=== PATIENT | female | born 1980 | race Caucasian/White ===

== ENCOUNTER 2019-05-18 09:44 | Emergency (ER) | payer MEDICAID ==
[~2019-05-18] VITALS: Ht 157.5 cm; Wt 131.0 kg
[2019-05-18 09:48] VITALS: BP 122/80
[2019-05-18] MEDS ORDERED: amoxicillin 250mg capsule PO ONE (10:30)
[2019-05-18] MEDS ORDERED: BUPIVAcaine/PF 7.5mg/ml (0.75%) 10ml vial IJ ONE (10:30)
[2019-05-18] MEDS ORDERED: HYDR-3965 PO (11:14)
[2019-05-18] MEDS ORDERED: AMOX500C2 PO (11:14)
== END 2019-05-18 11:26 | disposition home or self-care (01) ==
LOC: ER 09:45
DX: K08.89 Other specified disorders of teeth and supporting structures (principal); E11.9 Type 2 diabetes mellitus without complications; Z90.49 Acquired absence of other specified parts of digestive tract; Z88.2 Allergy status to sulfonamides
CPT/HCPCS: 64400; 99284; J3490

== ENCOUNTER 2021-10-03 19:29 | Emergency (ER) | payer MEDICAID ==
[~2021-10-03] VITALS: Ht 157.5 cm; Wt 119.4 kg
[2021-10-03] MEDS ORDERED: DOXYCYCLINE 100MG CAPSULE PO STA (20:47)
[2021-10-03] MEDS ORDERED: HYDROcodone/acetaminophen 10/325mg tab PO ONE (20:50)
[2021-10-03] MEDS ORDERED: DOXY100C76 PO (20:52)
[2021-10-03] MEDS ORDERED: HYDR-3972 PO (20:52)
[2021-10-03 21:23] VITALS: BP 123/89
== END 2021-10-03 21:26 | disposition home or self-care (01) ==
LOC: ER 19:30
DX: L03.011 Cellulitis of right finger (principal); E11.9 Type 2 diabetes mellitus without complications; Z90.49 Acquired absence of other specified parts of digestive tract; Z88.2 Allergy status to sulfonamides; Z79.899 Other long term (current) drug therapy
CPT/HCPCS: 10060; 10160; 99283; 99284

== ENCOUNTER 2021-12-13 12:21 | Emergency (ER) | payer MEDICAID ==
[~2021-12-13] VITALS: Ht 157.5 cm; Wt 119.2 kg
[2021-12-13 12:36] VITALS: BP 148/85
[2021-12-13] MEDS ORDERED: cephalexin 500mg capsule PO ONE (14:55)
[2021-12-13] MEDS ORDERED: HYDROcodone/acetaminophen 5mg/325mg tablet PO ONE (15:50)
[2021-12-13] MEDS ORDERED: CEPH500C81 PO (15:53)
== END 2021-12-13 16:11 | disposition home or self-care (01) ==
LOC: ER 12:21
DX: L02.811 Cutaneous abscess of head [any part, except face] (principal); L02.212 Cutaneous abscess of back [any part, except buttock and flank]; H92.02 Otalgia, left ear; E11.9 Type 2 diabetes mellitus without complications; Z79.2 Long term (current) use of antibiotics; Z90.49 Acquired absence of other specified parts of digestive tract
CPT/HCPCS: 10060; 99283

== ENCOUNTER 2021-12-15 18:30 | Emergency (ER) | payer MEDICAID ==
[~2021-12-15] VITALS: Ht 157.5 cm; Wt 120.5 kg
[~2021-12-15 18:30] MED LIST: CEPH500C81 PO
[2021-12-15 18:37] VITALS: BP 123/85
[2021-12-15] MEDS ORDERED: HYDROcodone/acetaminophen 10/325mg tab PO ONE (19:25)
[2021-12-15] MEDS ORDERED: LIDOcaine 1% W/epiNEPHrine 1:100,000 20ml vial IJ ONE (19:25)
--- NOTE | 2021-12-15 19:43 | NUR ---
PO MED GIVEN LIDOCAIN PLACED ON BEDSIDE TABLE
[2021-12-15] MEDS ORDERED: DOXYCYCLINE 100MG CAPSULE PO STA (20:08)
[2021-12-15] MEDS ORDERED: DOXY-1 PO (20:10)
[2021-12-15] MEDS ORDERED: ketorolac trometh inj. 60 MG/2 ML VIAL IM ONE (20:10)
== END 2021-12-15 20:49 | disposition home or self-care (01) ==
LOC: ER 18:31
DX: L02.811 Cutaneous abscess of head [any part, except face] (principal); E11.9 Type 2 diabetes mellitus without complications; Z90.49 Acquired absence of other specified parts of digestive tract; Z88.2 Allergy status to sulfonamides; Z79.899 Other long term (current) drug therapy
CPT/HCPCS: 10061; 96372; 99284; J1885; J3490; A6258; A6449

== ENCOUNTER 2024-08-14 19:12 | Inpatient (IN) | payer MEDICAID ==
[~2024-08-14] VITALS: Ht 157.5 cm; Wt 119.2 kg
[2024-08-14 20:01] LABS: BASOPHILS # (AUTO) 0.1 X10'3 (0-0.2); BASOPHILS % (AUTO) 1.4 % (0-1); EOSINOPHILS # (AUTO) 0.7 X10'3 (0-0.9); EOSINOPHILS % (AUTO) 6.6 % (0-6); HEMATOCRIT 41.6 % (35.0-45.0); HEMOGLOBIN 14.1 g/dl (12.0-16.0); LYMPHOCYTES # (AUTO) 1.5 X10'3 (1.1-4.8); MEAN CORPUSCULAR HEMOGLOBIN 29.3 PG (27.0-31.0); MEAN CORPUSCULAR HGB CONC 33.8 g/dL (33.0-36.5); MEAN CORPUSCULAR VOLUME 86.6 FL (78-98); MEAN PLATELET VOLUME 8.5 FL (7.4-10.4); MONOCYTES # (AUTO) 1.1 X10'3 (0-0.9); MONOCYTES % (AUTO) 10.6 % (2-12); NEUTROPHILS # (AUTO) 6.7 X10'3 (1.8-7.7); NEUTROPHILS % (AUTO) 66.4 % (42-75); PLATELET COUNT 304 X10'3 (140-440); RED BLOOD COUNT 4.81 X10'6 (4.20-5.60); RED CELL DISTRIBUTION WIDTH 15.9 % (11.5-14.5); WHITE BLOOD COUNT 10.2 X10'3 (4.5-11.0)
[2024-08-14] MEDS ORDERED: ALB0.5UD IH (20:18)
[2024-08-14] MEDS ORDERED: ARIP5TAB12 PO (20:19)
[2024-08-14] MEDS ORDERED: BUDE0.5A11 NEB (20:19)
[2024-08-14] MEDS ORDERED: BUDE180A5 INH (20:20)
[2024-08-14 20:22] LABS: ALBUMIN 2.9 G/DL (3.4-5.0); ANION GAP 6 (8-16); BLOOD UREA NITROGEN 13 MG/DL (7-18); BUN/CREATININE RATIO 15.5 (10.0-20.0); CALCIUM 8.2 MG/DL (8.5-10.1); CHLORIDE 104 MMOL/L (99-107); CREATININE 0.84 MG/DL (0.40-0.90); GLUCOSE 186 MG/DL (70-104); POTASSIUM 3.6 MMOL/L (3.5-5.1); PRO BRAIN NATRIURETIC PEPTIDE 2151 PG/ML (0-125); SODIUM 139 MMOL/L (135-145); TOTAL CARBON DIOXIDE 28.9 MMOL/L (24-32); eGFR 74 ML/MIN
[2024-08-14] MEDS ORDERED: CHOL100025 PO (20:22)
[2024-08-14] MEDS ORDERED: CLON0.1T2 PO (20:24)
[2024-08-14] MEDS ORDERED: APIX5TAB3 PO (20:24)
[2024-08-14] MEDS ORDERED: FLUO20CA39 PO (20:25)
[2024-08-14] MEDS ORDERED: FURO-150 PO (20:27)
[2024-08-14] MEDS ORDERED: FLUT9.9S BOTHNARES (20:27)
[2024-08-14] MEDS ORDERED: PRED5TAB PO (20:29)
[2024-08-14] MEDS ORDERED: GABA-1405 PO (20:29)
[2024-08-14] MEDS ORDERED: RISP4TAB49 PO (20:31)
[2024-08-14] MEDS ORDERED: SEMA2PEN SUBCUT (20:32)
[2024-08-14 20:34] LABS: HCG SERUM QL NEGATIVE
[2024-08-14] MEDS ORDERED: TIOT4MIS3 INH (20:34)
[2024-08-14] MEDS ORDERED: iohexol 350MG/ML 100ml bottle IV ONE (20:38)
[2024-08-14] MEDS: ipratropium/albuterol 3ml nebule NEB ONE (20:58)
[2024-08-14 21:01] VITALS: PULSE 116; RESP 28; O2SAT 94
[2024-08-14 21:10] VITALS: PULSE 116; RESP 28; O2SAT 96
[2024-08-14 21:33] LABS: BILIRUBIN,URINE NEGATIVE (Neg); COLOR,URINE YELLOW (Yellow); GLUCOSE, URINE NEGATIVE (Neg); KETONES,URINE NEGATIVE (Neg); LEUKOCYTE ESTERASE ,URINE NEGATIVE (Neg); NITRITES, URINE POSITIVE (Neg); OCCULT BLOOD,URINE NEGATIVE (Neg); PROTEIN,URINE NEGATIVE (Neg); UROBILINOGEN,URINE 0.2 E.U/dL (0.2-1.0)
[2024-08-14 21:42] LABS: BASOPHILS # (AUTO) 0.1 X10'3 (0-0.2); BASOPHILS % (AUTO) 1.2 % (0-1); EOSINOPHILS # (AUTO) 0.6 X10'3 (0-0.9); EOSINOPHILS % (AUTO) 5.8 % (0-6); HEMATOCRIT 41.2 % (35.0-45.0); HEMOGLOBIN 13.5 g/dl (12.0-16.0); LYMPHOCYTES # (AUTO) 1.6 X10'3 (1.1-4.8); MEAN CORPUSCULAR HEMOGLOBIN 28.2 PG (27.0-31.0); MEAN CORPUSCULAR HGB CONC 32.8 g/dL (33.0-36.5); MEAN CORPUSCULAR VOLUME 85.9 FL (78-98); MEAN PLATELET VOLUME 8.2 FL (7.4-10.4); MONOCYTES # (AUTO) 1.2 X10'3 (0-0.9); MONOCYTES % (AUTO) 11.7 % (2-12); NEUTROPHILS # (AUTO) 6.5 X10'3 (1.8-7.7); NEUTROPHILS % (AUTO) 65.3 % (42-75); PLATELET COUNT 302 X10'3 (140-440); RED CELL DISTRIBUTION WIDTH 16.1 % (11.5-14.5)
[2024-08-14 21:44] LABS: APTT 32 SECONDS (22-32); INR 1.1 INR; PROTHROMBIN TIME 11.6 SECONDS (9.0-12.0)
[2024-08-14 21:46] LABS: CLARITY,URINE SLIGHTLY CLOUDY (Clear); UA COLLECTION TYPE URINAL
[2024-08-14 21:48] LABS: BACTERIA,URINE 4+ /HPF (Neg); RBC,URINE NONE SEEN /HPF (0-2); SQUAMOUS EPITHELIAL CELL,UR FEW /LPF (FEW); WBC,URINE 0-4 /HPF (0-4)
[2024-08-14] MEDS ORDERED: magnesium sulf-water 2g/50mL 50 ML IV PRN (22:30)
[2024-08-14] MEDS ORDERED: potassium Cl 20 mEq SR tablet PO PRN (22:30)
[2024-08-14] MEDS ORDERED: magnesium sulf-water 4G/100mL 100 ML IV PRN (22:30)
[2024-08-14] MEDS ORDERED: mag hydrox/Alum hydrox/simeth 30ml oral suspension PO PRN (22:30)
[2024-08-14] MEDS ORDERED: magnesium Cl slow-release 64mg tablet PO PRN (22:30)
[2024-08-14] MEDS ORDERED: acetaminophen 325mg tablet PO PRN ×2 (22:30)
[2024-08-14] MEDS ORDERED: HYDROcodone/acetaminophen 10/325mg tab PO PRN (22:30)
[2024-08-14] MEDS ORDERED: potassium Cl 40MEQ/1/2NS 520ml 520 ML IV PRN (22:30)
[2024-08-14] MEDS ORDERED: HYDROcodone/acetaminophen 5mg/325mg tablet PO PRN (22:30)
[2024-08-14] MEDS ORDERED: ondansetron/PF 4mg/2ml inj IV PRN (22:30)
[2024-08-14] MEDS: MESSAGE TO NURSING IV ONE (22:46)
[2024-08-14 22:56] LABS: HEMOGLOBIN A1C 7.3 % (4.5-6.2)
[2024-08-14] MEDS ORDERED: DEXTROSE 15 GM of carb/4 tabs (each vial/BOTTLE has 4 tablets) PO PRN ×2 (23:05)
[2024-08-14] MEDS ORDERED: dextrose 50%-water 50ml dispensing syringe IV PRN ×2 (23:05)
[2024-08-14] MEDS ORDERED: glucagon, human recombinant 1mg kit SUBCUT PRN (23:05)
[2024-08-14] MEDS: heparin 10,000 units/1 ML INJ IV ONE (23:08)
[2024-08-14] MEDS: heparin 25,000 UNIT/250ml bag 250 ML IV PRN (23:10)
[2024-08-14 23:28] LABS: URINE AMPHETAMINE SCREEN POSITIVE (Neg); URINE BARBITUATE SCREEN NEGATIVE (Neg); URINE BENZODIAZEPINES SCREEN NEGATIVE (Neg); URINE CANNABINOID SCREEN NEGATIVE (Neg); URINE COCAINE SCREEN NEGATIVE (Neg); URINE METHADONE SCREEN NEGATIVE (Neg); URINE OPIATE SCREEN POSITIVE (Neg); URINE PHENCYCLIDINE SCREEN NEGATIVE (Neg)
[2024-08-14] MEDS: ipratropium/albuterol 3ml nebule NEB SCH (23:46)
[2024-08-14 23:48] VITALS: PULSE 108; RESP 22; O2SAT 95
[2024-08-14 23:54] VITALS: PULSE 106; RESP 24
[2024-08-15] VITALS (25 sets, daily range): BP systolic 100–137; BP diastolic 51–80; PULSE 92–114; RESP 18–34; TEMP 97–97.3; O2SAT 89–96
[2024-08-15 05:42] LABS: BASOPHILS # (AUTO) 0.1 X10'3 (0-0.2); BASOPHILS % (AUTO) 0.9 % (0-1); EOSINOPHILS # (AUTO) 0.7 X10'3 (0-0.9); EOSINOPHILS % (AUTO) 6.4 % (0-6); HEMATOCRIT 40.8 % (35.0-45.0); HEMOGLOBIN 13.6 g/dl (12.0-16.0); LYMPHOCYTES # (AUTO) 1.5 X10'3 (1.1-4.8); LYMPHOCYTES % (AUTO) 14.3 % (21-51); MEAN CORPUSCULAR HEMOGLOBIN 28.9 PG (27.0-31.0); MEAN CORPUSCULAR HGB CONC 33.3 g/dL (33.0-36.5); MEAN CORPUSCULAR VOLUME 86.7 FL (78-98); MEAN PLATELET VOLUME 8.8 FL (7.4-10.4); MONOCYTES # (AUTO) 1.1 X10'3 (0-0.9); MONOCYTES % (AUTO) 11.2 % (2-12); NEUTROPHILS # (AUTO) 6.9 X10'3 (1.8-7.7); NEUTROPHILS % (AUTO) 67.2 % (42-75); PLATELET COUNT 280 X10'3 (140-440); WHITE BLOOD COUNT 10.3 X10'3 (4.5-11.0)
[2024-08-15 05:52] LABS: ALANINE AMINOTRANSFERASE 17 U/L (12-78); ALBUMIN 2.9 G/DL (3.4-5.0); ALBUMIN/GLOBULIN RATIO 0.8 (1.1-1.5); ALKALINE PHOSPHATASE 86 IU/L (46-116); ANION GAP 7 (8-16); ASPARTATE AMINO TRANSFERASE 17 U/L (10-37); BILIRUBIN,TOTAL 0.6 MG/DL (0.1-1.0); BLOOD UREA NITROGEN 7 MG/DL (7-18); BUN/CREATININE RATIO 9.5 (10.0-20.0); CALCIUM 8.2 MG/DL (8.5-10.1); CHLORIDE 104 MMOL/L (99-107); CHOL/HDL RATIO 2.8 (0.00-4.99); CHOLESTEROL 139 MG/DL (0-200); CREATININE 0.74 MG/DL (0.40-0.90); GLUCOSE 148 MG/DL (70-104); HDL CHOLESTEROL 50 MG/DL (35-60); LDL CHOLESTEROL 82 MG/DL (50-100); MAGNESIUM 1.8 MG/DL (1.5-2.4); PHOSPHORUS 3.6 MG/DL (2.3-4.5); POTASSIUM 3.4 MMOL/L (3.5-5.1); SODIUM 140 MMOL/L (135-145); TOTAL PROTEIN 6.5 G/DL (6.4-8.2); TRIGLYCERIDES 69 MG/DL (20-135); eCRCL 77 ML/MIN; eGFR 85 ML/MIN
[2024-08-15 06:01] LABS: INR 1.2 INR; PROTHROMBIN TIME 11.8 SECONDS (9.0-12.0)
[2024-08-15] MEDS: MESSAGE TO NURSING IV ONE ×3 (06:40→17:12)
[2024-08-15] MEDS: INSULIN LISPRO 100 UNIT/ML INSULN.PEN MULTI-DOSE SQ SCH ×2 (07:00→09:00)
[2024-08-15] MEDS: albuterol 2.5 MG/3 ML nebule NEB PRN (07:40)
[2024-08-15] MEDS: K and/or MAG REPLACEMENT MC SCH (08:00)
[2024-08-15] MEDS ORDERED: cloNIDine 0.1 mg tablet PO PRN (08:40)
[2024-08-15] MEDS ORDERED: albuterol 2.5 MG/3 ML nebule NEB PRN (08:40)
[2024-08-15] MEDS: CefTRIAXone/D5W-Rocephin 1gm 50 ML IV SCH (09:44)
[2024-08-15] MEDS: potassium Cl 20 mEq SR tablet PO PRN (10:07)
[2024-08-15] MEDS ORDERED: ipratropium/albuterol 3ml nebule NEB PRN (11:00)
[2024-08-15] MEDS: furosemide 10 MG/1 ML 10ml inj IV ONE (11:15)
[2024-08-15] MEDS: ipratropium/albuterol 3ml nebule NEB SCH (11:48)
[2024-08-15] MEDS: azithromycin/NS 500mg/250ml 250 ML IV SCH (12:31)
[2024-08-15] MEDS: methylPREDNISolone sod succ 125mg/2ml vial IV ONE (12:31)
[2024-08-15] MEDS: methylPREDNISolone sod succ/PF 40mg inj. IV SCH (15:15)
[2024-08-15] MEDS: gabapentin 300mg capsule PO SCH (15:17)
[2024-08-15] MEDS: heparin 10,000 units/1 ML INJ IV PRN (17:07)
[2024-08-15] MEDS ORDERED: budesonide 0.5mg/2ml UD nebule IH SCH ×2 (20:00)
[2024-08-15] MEDS ORDERED: ipratropium 0.5 MG/2.5ML nebule IH SCH (20:00)
[2024-08-15] MEDS: furosemide 20MG tablet PO SCH (21:17)
[2024-08-15] MEDS: risperiDONE 2mg tablet PO SCH (21:17)
[2024-08-16] VITALS (26 sets, daily range): BP systolic 92–149; BP diastolic 56–83; PULSE 88–116; RESP 16–24; TEMP 97.1–97.9; O2SAT 91–98
[2024-08-16] MEDS: MESSAGE TO NURSING IV ONE ×3 (00:55→22:16)
[2024-08-16 05:01] LABS: BASOPHILS % (AUTO) 0.4 % (0-1); EOSINOPHILS % (AUTO) 0 % (0-6); HEMATOCRIT 38.8 % (35.0-45.0); LYMPHOCYTES # (AUTO) 1.1 X10'3 (1.1-4.8); LYMPHOCYTES % (AUTO) 9.9 % (21-51); MEAN CORPUSCULAR HEMOGLOBIN 28.7 PG (27.0-31.0); MEAN CORPUSCULAR HGB CONC 33.4 g/dL (33.0-36.5); MEAN CORPUSCULAR VOLUME 86.1 FL (78-98); MEAN PLATELET VOLUME 8.5 FL (7.4-10.4); MONOCYTES # (AUTO) 0.3 X10'3 (0-0.9); MONOCYTES % (AUTO) 2.6 % (2-12); NEUTROPHILS # (AUTO) 9.6 X10'3 (1.8-7.7); NEUTROPHILS % (AUTO) 87.1 % (42-75); PLATELET COUNT 337 X10'3 (140-440); RED CELL DISTRIBUTION WIDTH 15.7 % (11.5-14.5)
[2024-08-16 05:15] LABS: ALANINE AMINOTRANSFERASE 19 U/L (12-78); ALBUMIN 2.7 G/DL (3.4-5.0); ALBUMIN/GLOBULIN RATIO 0.7 (1.1-1.5); ALKALINE PHOSPHATASE 85 IU/L (46-116); ANION GAP 5 (8-16); ASPARTATE AMINO TRANSFERASE 6 U/L (10-37); BILIRUBIN,TOTAL 0.6 MG/DL (0.1-1.0); BLOOD UREA NITROGEN 14 MG/DL (7-18); BUN/CREATININE RATIO 19.2 (10.0-20.0); CALCIUM 8.8 MG/DL (8.5-10.1); CHLORIDE 102 MMOL/L (99-107); CREATININE 0.73 MG/DL (0.40-0.90); GLUCOSE 240 MG/DL (70-104); MAGNESIUM 1.8 MG/DL (1.5-2.4); PHOSPHORUS 3.2 MG/DL (2.3-4.5); POTASSIUM 4.3 MMOL/L (3.5-5.1); SODIUM 137 MMOL/L (135-145); TOTAL CARBON DIOXIDE 30.4 MMOL/L (24-32); TOTAL PROTEIN 6.5 G/DL (6.4-8.2); eCRCL 78 ML/MIN; eGFR 87 ML/MIN
[2024-08-16] MEDS: methylPREDNISolone sod succ/PF 40mg inj. IV SCH (05:16)
[2024-08-16] MEDS ORDERED: fluticasone nasal spray 16GM bottle NS PRN (08:00)
[2024-08-16] MEDS: cholecalciferol (vitamin D3) 1,000 unit (25mcg) tablet PO SCH (08:12)
[2024-08-16] MEDS: aripiprazole 5mg tablet PO SCH (08:13)
[2024-08-16] MEDS: predniSONE 5mg tablet PO SCH (08:13)
[2024-08-16] MEDS: FLUoxetine 20mg capsule PO SCH (08:14)
[2024-08-16] MEDS: VANCOMYCIN LEVEL IV ONE (09:10)
[2024-08-16] MEDS: INSULIN LISPRO 100 UNIT/ML INSULN.PEN MULTI-DOSE SQ ONE (17:47)
[2024-08-17] VITALS (23 sets, daily range): BP systolic 93–121; BP diastolic 62–74; PULSE 78–104; RESP 16–24; TEMP 96.9–99.1; O2SAT 92–98
[2024-08-17] MEDS: heparin 25,000 UNIT/250ml bag 250 ML IV PRN (02:36)
[2024-08-17 03:29] LABS: BASOPHILS # (AUTO) 0.1 X10'3 (0-0.2); BASOPHILS % (AUTO) 0.4 % (0-1); EOSINOPHILS % (AUTO) 0 % (0-6); HEMATOCRIT 37.7 % (35.0-45.0); HEMOGLOBIN 12.3 g/dl (12.0-16.0); LYMPHOCYTES # (AUTO) 1.3 X10'3 (1.1-4.8); LYMPHOCYTES % (AUTO) 7.2 % (21-51); MEAN CORPUSCULAR HEMOGLOBIN 28.2 PG (27.0-31.0); MEAN CORPUSCULAR HGB CONC 32.7 g/dL (33.0-36.5); MEAN CORPUSCULAR VOLUME 86.3 FL (78-98); MEAN PLATELET VOLUME 8.5 FL (7.4-10.4); MONOCYTES # (AUTO) 0.9 X10'3 (0-0.9); MONOCYTES % (AUTO) 5.2 % (2-12); NEUTROPHILS # (AUTO) 15.4 X10'3 (1.8-7.7); NEUTROPHILS % (AUTO) 87.2 % (42-75); PLATELET COUNT 345 X10'3 (140-440); RED BLOOD COUNT 4.37 X10'6 (4.20-5.60); RED CELL DISTRIBUTION WIDTH 15.7 % (11.5-14.5); WHITE BLOOD COUNT 17.7 X10'3 (4.5-11.0)
[2024-08-17 03:42] LABS: ALANINE AMINOTRANSFERASE 17 U/L (12-78); ALBUMIN 2.7 G/DL (3.4-5.0); ALBUMIN/GLOBULIN RATIO 0.7 (1.1-1.5); ALKALINE PHOSPHATASE 81 IU/L (46-116); ANION GAP 3 (8-16); ASPARTATE AMINO TRANSFERASE 5 U/L (10-37); BILIRUBIN,TOTAL 0.2 MG/DL (0.1-1.0); BLOOD UREA NITROGEN 22 MG/DL (7-18); BUN/CREATININE RATIO 29.3 (10.0-20.0); CALCIUM 9.2 MG/DL (8.5-10.1); CHLORIDE 101 MMOL/L (99-107); CREATININE 0.75 MG/DL (0.40-0.90); GLUCOSE 323 MG/DL (70-104); POTASSIUM 4.9 MMOL/L (3.5-5.1); SODIUM 135 MMOL/L (135-145); TOTAL CARBON DIOXIDE 31.1 MMOL/L (24-32); TOTAL PROTEIN 6.5 G/DL (6.4-8.2); eCRCL 76 ML/MIN; eGFR 84 ML/MIN
[2024-08-17] MEDS: MESSAGE TO NURSING IV ONE ×4 (04:05→22:14)
[2024-08-17] MEDS: piperacillin/tazo 4.5gm/100ml 100 ML IV SCH (11:00)
[2024-08-17] MEDS: INSULIN LISPRO 100 UNIT/ML INSULN.PEN MULTI-DOSE SQ SCH (17:44)
[2024-08-17] MEDS: insulin glargine (Lantus) pen - multi-dose SQ SCH (21:50)
[2024-08-17] MEDS: apixaban 5mg tablet PO SCH (21:55)
[2024-08-18] VITALS (11 sets, daily range): BP systolic 114; BP diastolic 69; PULSE 71–85; RESP 14–24; TEMP 97.8; O2SAT 94–99
[2024-08-18 03:25] LABS: BASOPHILS % (AUTO) 0.3 % (0-1); EOSINOPHILS % (AUTO) 0.1 % (0-6); HEMATOCRIT 38.1 % (35.0-45.0); HEMOGLOBIN 12.3 g/dl (12.0-16.0); LYMPHOCYTES # (AUTO) 1.2 X10'3 (1.1-4.8); LYMPHOCYTES % (AUTO) 7.9 % (21-51); MEAN CORPUSCULAR HEMOGLOBIN 28.1 PG (27.0-31.0); MEAN CORPUSCULAR HGB CONC 32.1 g/dL (33.0-36.5); MEAN CORPUSCULAR VOLUME 87.4 FL (78-98); MEAN PLATELET VOLUME 8.6 FL (7.4-10.4); MONOCYTES # (AUTO) 0.9 X10'3 (0-0.9); MONOCYTES % (AUTO) 5.6 % (2-12); NEUTROPHILS # (AUTO) 13.2 X10'3 (1.8-7.7); NEUTROPHILS % (AUTO) 86.1 % (42-75); PLATELET COUNT 318 X10'3 (140-440); RED BLOOD COUNT 4.36 X10'6 (4.20-5.60); RED CELL DISTRIBUTION WIDTH 15.9 % (11.5-14.5); WHITE BLOOD COUNT 15.3 X10'3 (4.5-11.0)
[2024-08-18 03:38] LABS: ALANINE AMINOTRANSFERASE 19 U/L (12-78); ALBUMIN 2.6 G/DL (3.4-5.0); ALBUMIN/GLOBULIN RATIO 0.7 (1.1-1.5); ALKALINE PHOSPHATASE 73 IU/L (46-116); ANION GAP 3 (8-16); ASPARTATE AMINO TRANSFERASE 7 U/L (10-37); BILIRUBIN,TOTAL 0.2 MG/DL (0.1-1.0); BLOOD UREA NITROGEN 24 MG/DL (7-18); BUN/CREATININE RATIO 32.4 (10.0-20.0); CALCIUM 8.9 MG/DL (8.5-10.1); CHLORIDE 99 MMOL/L (99-107); CREATININE 0.74 MG/DL (0.40-0.90); GLUCOSE 364 MG/DL (70-104); MAGNESIUM 2.2 MG/DL (1.5-2.4); PHOSPHORUS 3.5 MG/DL (2.3-4.5); POTASSIUM 4.8 MMOL/L (3.5-5.1); SODIUM 134 MMOL/L (135-145); TOTAL CARBON DIOXIDE 32.4 MMOL/L (24-32); TOTAL PROTEIN 6.3 G/DL (6.4-8.2); eCRCL 77 ML/MIN; eGFR 85 ML/MIN
[2024-08-18] MEDS: MESSAGE TO NURSING IV ONE (03:45)
[2024-08-18 05:11] LABS: ANTITHROMBIN ACTIVITY 133 % (75-135); ANTITHROMBIN ANTIGEN 102 % (72-124); PROTEIN S, TOTAL 73 % (60-150)
[2024-08-18] MEDS: EMPAGLIFLOZIN 10 MG TABLET PO SCH (08:25)
[2024-08-18] MEDS: metoprolol succinate 25mg (24-HOUR) SR. Tablet PO SCH (08:25)
[2024-08-18] MEDS: INSULIN LISPRO 100 UNIT/ML INSULN.PEN MULTI-DOSE SQ ONE (09:28)
[2024-08-18] MEDS ORDERED: AMOX-580 PO ×2 (11:42→11:49)
[2024-08-18] MEDS ORDERED: APIX5TAB3 PO ×2 (11:42→11:49)
[2024-08-18] MEDS ORDERED: PRED10TA23 PO (11:42)
[2024-08-18] MEDS ORDERED: PRED10TA PO (11:49)
[2024-08-18] MEDS ORDERED: INSULIN LISPRO 100 UNIT/ML INSULN.PEN MULTI-DOSE SQ SCH (13:00)
[2024-08-18] MEDS ORDERED: insulin glargine (Lantus) pen - multi-dose SQ SCH (21:00)
[2024-08-21] MEDS ORDERED: SEMAGLUTIDE 2 MG SQ SCH (08:40)
== END 2024-08-18 12:53 | disposition home or self-care (01) | DRG 197 ==
LOC: ER 19:12 → ED HOLD 21:42 → PCU 3S 08-15 00:30
PROVIDERS: ADMIT Internal Medicine; ATTEND Family Medicine
PROC: B32T1ZZ Computerized Tomography (CT Scan) of Left Pulmonary Artery using Low Osmolar Contrast (ICD-10-PCS; principal; 2024-08-14)
PROC: B3201ZZ Computerized Tomography (CT Scan) of Thoracic Aorta using Low Osmolar Contrast (ICD-10-PCS; 2024-08-14)
PROC: B32S1ZZ Computerized Tomography (CT Scan) of Right Pulmonary Artery using Low Osmolar Contrast (ICD-10-PCS; 2024-08-14)
PROC: 5A09357 Assistance with Respiratory Ventilation, Less than 24 Consecutive Hours, Continuous Positive Airway Pressure (ICD-10-PCS; 2024-08-15)
PROC: 05HF33Z Insertion of Infusion Device into Left Cephalic Vein, Percutaneous Approach (ICD-10-PCS; 2024-08-15)
PROC: B54NZZA Ultrasonography of Left Upper Extremity Veins, Guidance (ICD-10-PCS; 2024-08-15)
PROC: 5A09357 Assistance with Respiratory Ventilation, Less than 24 Consecutive Hours, Continuous Positive Airway Pressure (ICD-10-PCS; 2024-08-16)
PROC: 5A09357 Assistance with Respiratory Ventilation, Less than 24 Consecutive Hours, Continuous Positive Airway Pressure (ICD-10-PCS; 2024-08-17)
PROC: 5A09357 Assistance with Respiratory Ventilation, Less than 24 Consecutive Hours, Continuous Positive Airway Pressure (ICD-10-PCS; 2024-08-18)
DX: I82.412 Acute embolism and thrombosis of left femoral vein (principal); I26.99 Other pulmonary embolism without acute cor pulmonale; J96.21 Acute and chronic respiratory failure with hypoxia; I27.20 Pulmonary hypertension, unspecified; I82.432 Acute embolism and thrombosis of left popliteal vein; E11.9 Type 2 diabetes mellitus without complications; B96.1 Klebsiella pneumoniae [K. pneumoniae] as the cause of diseases classified elsewhere; Z20.822 Contact with and (suspected) exposure to COVID-19; I50.30 Unspecified diastolic (congestive) heart failure; F17.210 Nicotine dependence, cigarettes, uncomplicated; F15.90 Other stimulant use, unspecified, uncomplicated; E66.01 Morbid (severe) obesity due to excess calories; Z68.42 Body mass index [BMI] 45.0-49.9, adult; G47.33 Obstructive sleep apnea (adult) (pediatric); J44.1 Chronic obstructive pulmonary disease with (acute) exacerbation; J43.9 Emphysema, unspecified; N39.0 Urinary tract infection, site not specified; Z91.148 Patient's other noncompliance with medication regimen for other reason; Z88.8 Allergy status to other drugs, medicaments and biological substances
CPT/HCPCS: 36410; 36415; 71045; 71275; 76937; 80048; 80053; 80061; 80305; 81001; 81479; 82948; 83036; 83605; 83735; 83880; 83891; 83894; 83898; 84100; 84145; 84703; 85025; 85300; 85301; 85303; 85305; 85306; 85610; 85730; 87040; 87077; 87081; 87088; 87186; 87502; 87503; 87811; 93005; 93306; 93970; 94640; 94660; 94760; 96374; 96375; 97110; 97116; 97162; 99291; A4620; C1751; G0378; J0456; J0696; J1644; J1815; J1938; J2543; J2919; J7040; J7512; Q9967

== ENCOUNTER 2024-09-09 16:57 | Inpatient (IN) | payer MEDICAID ==
[~2024-09-09] VITALS: Ht 162.6 cm; Wt 115.7 kg
[~2024-09-09 16:57] MED LIST changes: +ALB0.5UD IH; +APIX5TAB3 PO; +ARIP5TAB12 PO; +BUDE0.5A11 NEB; +BUDE180A5 INH; -CEPH500C81 PO; +CHOL100025 PO; +CLON0.1T2 PO; +FLUO20CA39 PO; +FLUT9.9S BOTHNARES; +FURO-150 PO; +GABA-1405 PO; +PRED10TA PO; +RISP4TAB49 PO; +SEMA2PEN SUBCUT; +TIOT4MIS3 INH
[2024-09-09] MEDS ORDERED: albuterol 2.5 MG/3 ML nebule CONTNEB PRN (17:20)
--- NOTE | 2024-09-09 17:20 | VISIT NOTE ---
ED Rapid Medical Assessment History 44-year-old female with a known history of asthma/COPD presents for evaluation of severe shortness a breath getting progressively worse over the last week. Markedly worsened with the last 24 hours. Similar to prior COPD/asthma exacerbation. Home remedies are not working. History, review of systems, physical examination are limited due to severity of patient's clinical condition. Exam: GENERAL: Awake, alert, oriented, GCS 15, no apparent distress, non-toxic appearing, answers questions, follows commands appropriately. HEENT: Atraumatic, normocephalic, pupils equal, extraocular muscles intact, sclerae anicteric, mucus membranes moist, oropharynx is clear, no stridor. NECK: supple, full active range of motion, trachea midline, no thyromegaly, no lymphadenopathy, no JVD. CARDIOVASCULAR: Tachycardic and regular rate/rhythm, no murmurs/gallops/rubs, Pulses are 2+ in all extremities and symmetric. Capillary refill less than 2 seconds. PULMONARY: Tachypneic, labored, markedly decreased to almost non-existent air movement , moderate respiratory distress, speaking in one word sentences, very faint expiratory wheezing, no ronchi, no rales, notable accessory muscle use. GASTROINTESTINAL: Soft, non-tender, non-distended, normal active bowel sounds, no organomegaly, no pulsatile masses, no CVA tenderness. NEUROLOGIC: Lucid with normal mental status. Normal facial symmetry. Moves all extremities symmetrically and with purpose. No truncal ataxia. Speech is fluid without evidence of dysarthria or aphasia, no focal deficits appreciated. MUSCULOSKELETAL: There is full range of motion of all extremities. There is no joint pain or joint swelling or joint erythema. There is no muscle pain or tenderness or swelling. EXTREMITIES: warm, well-perfused, no cyanosis, no clubbing, no edema, no acute deformities. Skin: warm, dry, no rashes or lesions, no jaundice, no petechiae orpurpura. No ecchymosis. PSYCHIATRIC: Understandably anxious affect, normal insight, normal concentration. Focused exam: [] Assessment and Plan Differential includes but not limited to asthma exacerbation, ACS, CHF, COPD, pneumothorax, less likely PE. On presentation hypoxic and mid 70s. Placed on non-rebreather mask clear recovery to 84%. Patient will be placed on BiPAP. Albuterol started. Magnesium will be given. Shortness a breath workup will be initiated. CRITICAL CARE TIME: [35] minutes Treatments/Evaluations: Close monitoring and treatment of unstable vital signs, cardiorespiratory, and neurologic status, while maintaining tight balance of fluid, respiratory, and cardiac interventions. This time includes discussing the case with the patient and the patients family. This time does not include all procedures stated elsewhere in this record. This time also includes reviewing old records, labs and radiological studies. This time includes examining and re- examining the patient. Additionally, this time also includes arranging care with admitting and consulting physicians. Diagnosis: 1. Acute hypoxic respiratory failure 2. Asthma exacerbation MAURO NEIL DO September 09, 2024 17:20
[2024-09-09] MEDS: albuterol 2.5 MG/3 ML nebule CONTNEB PRN (17:24)
[2024-09-09 17:25] VITALS: PULSE 109; RESP 30; O2SAT 97
[2024-09-09] MEDS: magnesium sulf-water 2g/50mL 50 ML IV ONE (17:32)
[2024-09-09 17:34] VITALS: PULSE 112; RESP 30; O2SAT 98
[2024-09-09 17:42] LABS: ABG BASE EXCESS 4.6 mmol/L (-2.0-3.0); ABG HCO3 29.6 mmol/L (21.0-28.0); ABG OXYGEN SATURATION 94.4 % (94.0-98.0); ABG PCO2 (T) 45.1 mmHg (32.0-45.0); ABG PH (T) 7.435 (7.350-7.450); ABG PO2 (T) 71.5 mmHg (83.0-108.0); ALLEN'S TEST POSITIVE; FCOHb 0.3 % (0.5-1.5); FHHb 5.6 % (0.0-5.0); FO2Hb 94.1 % (94.0-98.0); MODE MASK - BIPAP; RESPIRATORY RATE 12 b/min; TIDAL VOLUME 831 mL; TOTAL HEMOGLOBIN 14.5 G/dl (12.0-16.0)
[2024-09-09 17:46] LABS: BASOPHILS # (AUTO) 0.1 X10'3 (0-0.2); BASOPHILS % (AUTO) 1.3 % (0-1); EOSINOPHILS # (AUTO) 0.9 X10'3 (0-0.9); EOSINOPHILS % (AUTO) 9.1 % (0-6); HEMATOCRIT 40.2 % (35.0-45.0); HEMOGLOBIN 13.5 g/dl (12.0-16.0); LYMPHOCYTES # (AUTO) 2.5 X10'3 (1.1-4.8); LYMPHOCYTES % (AUTO) 25.6 % (21-51); MEAN CORPUSCULAR HEMOGLOBIN 28.9 PG (27.0-31.0); MEAN CORPUSCULAR HGB CONC 33.4 g/dL (33.0-36.5); MEAN CORPUSCULAR VOLUME 86.5 FL (78-98); MEAN PLATELET VOLUME 8.3 FL (7.4-10.4); MONOCYTES # (AUTO) 1.1 X10'3 (0-0.9); NEUTROPHILS # (AUTO) 5.2 X10'3 (1.8-7.7); PLATELET COUNT 339 X10'3 (140-440); RED BLOOD COUNT 4.65 X10'6 (4.20-5.60); RED CELL DISTRIBUTION WIDTH 16.2 % (11.5-14.5); WHITE BLOOD COUNT 9.8 X10'3 (4.5-11.0)
--- NOTE | 2024-09-09 17:52 | RADIOLOGY REPORT ---
CHEST RADIOGRAPH Indication: Shortness a breath Technique: Single frontal view of the chest was obtained COMPARISON: DI CHEST,SINGLE VIEW on DOS: 08/14/24 FINDINGS: Lines and Tubes: None Lungs: Clear Pleura: No effusion. No pneumothorax. Cardiomediastinal contours: Unremarkable Bones: Unremarkable IMPRESSION: 1. No acute disease.
--- NOTE | 2024-09-09 17:57 | ELECTROCARDIOGRAPH REPORT ---
[facility] Test Date: 2024-09-09 Test Time: 17:13:55 Pat Name: EFRAIN OKEEFE Department: EMERGENCY ROOM Room: [place] [address] Gender: F Dental Patient Coordinator: PM : 1980 Requested By: MAURO NEIL Order Number: [id number] Reading MD: Dr. Gerry Fall Measurements Intervals [place] Rate: 109 P: 77 NC: 160 QRS: 128 QRSD: 91 T: 15 QT: 354 QTc: 477 Interpretive Statements Sinus tachycardia Probable left atrial enlargement Low voltage, precordial leads Probable right ventricular hypertrophy Borderline T abnormalities, anterior leads Baseline wander in lead(s) I,II,aVR,aVL,aVF,V1,V2,V3,V5,V6 Electronically Signed On 09-10-2024 15:46:[address] Gerry Fall Please click the below link to view image of tracing.
[2024-09-09 18:03] LABS: ALANINE AMINOTRANSFERASE 26 U/L (12-78); ALBUMIN/GLOBULIN RATIO 0.8 (1.1-1.5); ALKALINE PHOSPHATASE 83 IU/L (46-116); ANION GAP 5 (8-16); ASPARTATE AMINO TRANSFERASE 16 U/L (10-37); BILIRUBIN,TOTAL 0.6 MG/DL (0.1-1.0); BLOOD UREA NITROGEN 8 MG/DL (7-18); BUN/CREATININE RATIO 9.3 (10.0-20.0); CALCIUM 8.6 MG/DL (8.5-10.1); CHLORIDE 104 MMOL/L (99-107); CREATININE 0.86 MG/DL (0.40-0.90); GLUCOSE 221 MG/DL (70-104); POTASSIUM 3.2 MMOL/L (3.5-5.1); SODIUM 139 MMOL/L (135-145); TOTAL CARBON DIOXIDE 29.8 MMOL/L (24-32); eCRCL 72 ML/MIN; eGFR 72 ML/MIN
[2024-09-09 18:10] LABS: MAGNESIUM 1.5 MG/DL (1.5-2.4); PRO BRAIN NATRIURETIC PEPTIDE 2041 PG/ML (0-125)
--- NOTE | 2024-09-09 18:12 | Physician Documentation ---
History of Present Illness ~ Chief Complaint: Shortness of Breath Stated Complaint: "OXYGEN IS AT A 72" Time Seen by MD: 18:03 Primary Medical Doctor: On License Of [facility] Mode of Arrival: POV, Wheelchair HPI Patient presents to the emergency room with chief complaint of shortness of breath that has been progressive over the past week. The patient was a complicated medical history including recurrent pulmonary embolisms pneumonia COPD. She was admitted here recently were echo it was performed which showed good ejection fraction. She continues to smoke. She was normally on 4 L of oxygen. In our lobby she was noted to be 77% on room air as she left her oxygen in the car as she felt like she did not need it to come into the emergency room. She was placed on BiPAP and it was doing much better. She reports compliance with her anticoagulation Medication Reconciliation Allergies: Coded Allergies: Sulfa (Sulfonamide Antibiotics) (Verified Allergy, Severe, SWELLING, 09/09/24) Scheduled Apixaban (Eliquis), 5 MG PO BID Aripiprazole* (Abilify*), 1 TAB PO DAILY Budesonide (Pulmicort Flexhaler), 2 PUFFS INH Q12H Budesonide Neb* (Pulmicort Neb*), 1 VIAL NEB Q12H Cholecalciferol (Vitamin D), 5 TAB PO DAILY Fluoxetine Hcl* (Prozac*), 3 CAP PO DAILY Fluticasone Propionate (Flonase Allergy Relief), 2 SPRAYS BOTHNARES DAILY Furosemide* (Lasix*), 1 TAB PO BID Gabapentin (Gabapentin), 1 TAB PO Q8H Prednisone (Prednisone), 0 PO DAILY Risperidone (Risperidone), 1 TAB PO HS Semaglutide (Ozempic), 2 MG SUBCUT Q7D Tiotropium Br/Olodaterol HCl (Stiolto Respimat Inhal [place]), 1 INH INH BID Scheduled PRN Albuterol Sulfate Nebs* (Proventil Nebs*), 2.5 MG IH Q6H PRN for SOB or wheezing Clonidine HCl (Clonidine HCl), 1 TAB PO HSMR1 PRN for agitation Past Medical History Past Medical History: Diabetes Past Surgical History: cholecystectomy Alcohol Use: None Drug Use: none Lives with: Family Lives In: Home Occupation: employed Review of Systems ROS All review of systems negative except as per HPI Physical Exam Vital Signs: Temperature: 97.6, Source: Oral, Heart Rate: 112, Respiratory Rate: 30, Pulse Oximetry: 98, Weight: 107.270 Oxygen Flow Rate: 8.0 Physical Exam General: Patient is awake, alert, oriented x4, chronically ill-appearing Head: Normocephalic and atraumatic. Eyes: Conjunctival normal. EOMI. PERRL. ENT: Mucous membranes moist. Neck: Supple, trachea is midline. Chest: Diffuse bilateral wheezing. On BiPAP. There is no accessory muscle use or retractions. Cardiac: Tachycardic and regular without murmurs, gallops, or rubs. Abd: Soft, nondistended, nontender, with normoactive bowel sounds. No guarding, rebound, or rigidity. Extremities: Normal strength. Normal range of motion. No deformities or edema. No calf tenderness to palpation Progress Results/Orders Results/Orders Orders - JUDSON LIANG MD Page Hospitalist (09/09/24 18:22) Fill Out Med Reconciliation (09/09/24 18:22) Medications Received in ER Medications (Trade) Dose Ordered Sig/Jana Route PRN Reason Start Time Stop Time Status Last Admin Dose Admin (Proventil 2.5 MG/3ML nebule) 10 mg ONCE PRN CONTNEB SOB or wheezing 09/09/24 17:15 09/09/24 17:24 10 MG Magnesium Sulfate 50 ml @ 100 mls/hr ONCE ONCE IV 09/09/24 17:15 09/09/24 17:44 DC 09/09/24 17:32 100 MLS/HR Vital Signs 09/09/24 09/09/24 09/09/24 09/09/24 17:06 17:10 17:12 17:25 Temp 97.6 Pulse 120 Resp 26 Pulse Ox 77 94 O2 Delivery BiPAP+ O2 Flow Rate 8.0 FiO2 N/A 09/09/24 09/09/24 09/09/24 09/09/24 17:25 17:34 17:53 18:26 Pulse 109 112 Resp 30 30 30 30 30 B/P (MAP) Pulse Ox 97 98 O2 Delivery BiPAP+ FiO2 50 50 09/09/24 09/09/24 18:27 19:16 Pulse 110 95 Resp 20 19 B/P (MAP) 109/68 (82) Pulse Ox 95 94 FiO2 50 Laboratory Tests Test 09/09/24 17:31 09/09/24 17:40 09/09/24 19:02 09/09/24 20:24 White Blood Count 9.8 Red Blood Count 4.65 Hemoglobin 13.5 Hematocrit 40.2 Mean Corpuscular Volume 86.5 Mean Corpuscular Hemoglobin 28.9 Mean Corpuscular Hemoglobin Concent 33.4 Red Cell Distribution Width 16.2 H Platelet Count 339 Mean Platelet Volume 8.3 Neutrophils (%) (Auto) 53.0 Lymphocytes (%) (Auto) 25.6 Monocytes (%) (Auto) 11.0 Eosinophils (%) (Auto) 9.1 H Basophils (%) (Auto) 1.3 H Neutrophils # (Auto) 5.2 Lymphocytes # (Auto) 2.5 Monocytes # (Auto) 1.1 H Eosinophils # (Auto) 0.9 Basophils # (Auto) 0.1 CBC Comment Sodium Level 139 Potassium Level 3.2 L Chloride Level 104 Carbon Dioxide Level 29.8 Anion Gap 5 L Blood Urea Nitrogen 8 Creatinine 0.86 Estimated GFR/1.73 m2 72 BUN/Creatinine Ratio 9.3 L Glucose Level 221 H Calcium Level 8.6 Magnesium Level 1.5 Total Bilirubin 0.6 Aspartate Amino Transf (AST/SGOT) 16 Alanine Aminotransferase (ALT/SGPT) 26 Alkaline Phosphatase 83 Troponin I High Sensitivity 23 20 Pro-B-Type Natriuretic Peptide 2041 H Total Protein 7.0 Albumin 3.0 L Globulin 4.0 Albumin/Globulin Ratio 0.8 L Chemistry Comments Blood Gas Specimen Type Arterial Blood Gas Puncture Site Lr O2 Saturation 94.4 Arterial Blood pH (Temp corrected) 7.435 Arterial Blood pCO2 (Temp correct) 45.1 H Arterial Blood pO2 (Temp corrected) 71.5 L Arterial Blood PO2/FiO2 Ratio 1.43 Arterial Blood HCO3 29.6 H Arterial Blood Base Excess 4.6 H Arterial Blood Oxyhemoglobin 94.1 Arterial Blood Carboxyhemoglobin 0.3 L Arterial Blood Methemoglobin 0.0 Arterial Blood Deoxyhemoglobin 5.6 H Narayan Test Positive Blood Gas Hemoglobin 14.5 Blood Gas Temperature 37.0 Blood Gas Set Respiration Rate 12 Blood Gas Modality Mask - bipap FiO2 50.0 Blood Gas Tidal Volume 831 Troponin I High Sens Percent Delta 13 Troponin I Hi Sens Absolute Change -3 EKG/XRAY/CT/US/VASC/MRI EKG : Additional Comment EKG interpreted by myself she was time of 17 13, rate 109, sinus tachycardia, right axis deviation, no ST changes Chest X-Ray : Additional Comments Exam: CHEST,SINGLE VIEW CHEST RADIOGRAPH Indication: Shortness a breath Technique: Single frontal view of the chest was obtained COMPARISON: DI CHEST,SINGLE VIEW on DOS: 08/14/24 FINDINGS: Lines and Tubes: None Lungs: Clear Pleura: No effusion. No pneumothorax. Cardiomediastinal contours: Unremarkable Bones: Unremarkable IMPRESSION: 1. No acute disease. Medical Decision Making Findings Patient presents to the emergency with shortness of breath. Differentials include but are not limited to COPD exacerbation, pneumonia, pulmonary embolism, CHF therefore emergent labs and imaging indicated. Recent echo performed showed good ejection fraction although patient does show elevation of BNP and he had not believe her symptoms are secondary to CHF exacerbation. Patient was responded to duo nebs but it was requiring BiPAP. Blood gas is reassuring. Symptoms likely secondary to COPD exacerbation. She reports compliance with her anticoagulation and given response to breathing treatment I do not feel she requires additional investigation into possible pulmonary embolism. No evidence pneumonia at this time. As she was requiring BiPAP we will admit for continued treatment. Departure Admitted to Inpatient Unit: yes, to hospitalist Impression: Primary Impression: Respiratory failure Additional Impressions: COPD exacerbation Hypoxia Condition: Guarded Referrals: NO PRIMARY CARE PROVIDER (PCP) Critical Care Note Total Time (mins): 56 Critical Care Note The very real possibility of a deterioration of this patient's condition required the highest level of my preparedness for sudden, emergent intervention. I provided critical care services, which included medication orders, frequent reevaluations of the patient's condition and response to treatment, ordering and reviewing test results, and discussing the case with various consultants. Excludes time spent performing separately billable procedures. The critical care time associated with the care of the patient was 56 minutes not counting procedures. Signature Scribe Signature: no scribe Attestation: The note accurately reflects work and decisions made by me.Judson Liang MD 09/09/24 20:33 JUDSON LIANG MD September 09, 2024 18:12
[2024-09-09 19:16] VITALS: PULSE 95; RESP 20; O2SAT 94
[2024-09-09] MEDS ORDERED: potassium Cl 20 mEq SR tablet PO PRN (20:00)
[2024-09-09] MEDS: K and/or MAG REPLACEMENT MC SCH (20:00)
[2024-09-09] MEDS ORDERED: magnesium Cl slow-release 64mg tablet PO PRN (20:00)
[2024-09-09] MEDS ORDERED: magnesium sulf-water 2g/50mL 50 ML IV PRN (20:00)
[2024-09-09] MEDS ORDERED: mag hydrox/Alum hydrox/simeth 30ml oral suspension PO PRN (20:00)
[2024-09-09] MEDS ORDERED: magnesium hydroxide 30ml (MOM) UD suspension PO PRN (20:00)
[2024-09-09] MEDS ORDERED: magnesium sulf-water 4G/100mL 100 ML IV PRN (20:00)
[2024-09-09] MEDS ORDERED: potassium Cl 40MEQ/1/2NS 520ml 520 ML IV PRN (20:00)
[2024-09-09] MEDS ORDERED: ondansetron/PF 4mg/2ml inj IV PRN (20:00)
[2024-09-09] MEDS ORDERED: acetaminophen 325mg tablet PO PRN (20:00)
--- NOTE | 2024-09-09 20:32 | HISTORY AND PHYSICAL-Residence ---
History & Physical Providers to CC Resident Creating Document: RICO VICENTE, RES ~ History of Present Illness Primary Medical Doctor: [facility] Reason for Admit\Complaint: Shortness of breath History of Present Illness PCP: The patient does not remember the name. She goes to [facility]. 44-year-old female patient with past medical history of COPD currently using 4 L of oxygen at home, diabetes mellitus insulin dependent, obstructive sleep apnea, pulmonary embolism, DVT came to the hospital with chief complaint of shortness of breath. The patient reports that approximately one week ago she started having shortness of breath, despite her use of oxygen of 4 L, as per patient she has been compliant with her medication and oxygen use. Associated to these shortness of breath the patient also endorses cough with sputum production white in color. The patient denies any fever sensation, rhinorrhea, chest pain, palpitations, abdominal pain, intestinal or urinary symptoms. Allergies: Coded Allergies: Sulfa (Sulfonamide Antibiotics) (Verified Allergy, Severe, SWELLING, 09/09/24) Home Medications Home Medications Active Prednisone (Prednisone) 10 Mg Tablet 0 PO DAILY 9 Days Four tablets of 10 mg daily, for 3 days Two tablets of 10 mg daily for 3 days One tablet of 10 mg for 3 days Eliquis (Apixaban) 5 Mg Tablet 5 Mg PO BID 37 Days Take two tablets of 5 mg in the morning, two tablets of 5 mg in the evening for one week. After one week. Take 5 mg twice daily for the next six months. Follow up with your primary care provider regularly. Stiolto Respimat Inhal [place] (Tiotropium Br/Olodaterol HCl) 2.5 Mcg-2.5 Mcg/Actuation Mist.inhal 1 Inh INH BID 30 Days Ozempic (Semaglutide) 2 Mg/0.75 Ml (8 Mg/3 Ml) Pen.injctr 2 Mg SUBCUT Q7D 30 Days Risperidone 4 Mg Tab.rapdis 1 Tab PO HS 30 Days Gabapentin 600 Mg Tablet 1 Tab PO Q8H 30 Days Lasix* (Furosemide) 20 Mg Tablet 1 Tab PO BID 30 Days Flonase Allergy Relief (Fluticasone Propionate) 50 Mcg/Actuation [place].susp 2 Sprays BOTHNARES DAILY 30 Days Prozac* (Fluoxetine HCl) 20 Mg Capsule 3 Cap PO DAILY 30 Days Clonidine HCl 0.1 Mg Tablet 1 Tab PO HSMR1 PRN 30 Days Vitamin D (Cholecalciferol) 1,000 Unit Tablet 5 Tab PO DAILY 30 Days Pulmicort Flexhaler (Budesonide) 180 Mcg Aer.pow.ba 2 Puffs INH Q12H 30 Days Pulmicort Neb* (Budesonide) 0.5 Mg/2 Ml Ampul.neb 1 Vial NEB Q12H 30 Days Abilify* (Aripiprazole) 5 Mg Tablet 1 Tab PO DAILY 30 Days Proventil Nebs* (Albuterol) 2.5 Mg/0.5 Ml Vial.neb 2.5 Mg IH Q6H PRN 30 Days Past Medical History Past Medical History COPD using 4 L of oxygen at home. Diabetes mellitus currently in the on insulin. Obstructive sleep apnea as per patient compliant with CPAP at night. Pulmonary embolus and DVT currently on Eliquis. Past Surgical History Surgical History Comment Cholecystectomy. Tonsillectomy. Past Social History Smoking: Greater than 1 pack/day (As per patient the last time she smoked was one week ago. She uses to smoke one pack a day for at least 10 years.) Alcohol Use: Sober (As per patient she quit five years ago. She used to smoke two beers a day for four years.) Drug Use: Methamphetamine (The patient endorses use of amphetamines, last time two weeks ago.) Lives with: Other (Patient endorses that she lives with her girlfriend.) Lives In: Home Occupation: unemployed ROS All Other Systems: Reviewed and Negative Exam Vitals: Vital Signs Date Time Temp Pulse Resp B/P (MAP) Pulse Ox O2 Delivery O2 Flow Rate FiO2 09/09/24 19:16 95 20 94 50 19 09/09/24 18:27 109/68 (82) 09/09/24 17:25 BiPAP+ 09/09/24 17:25 8.0 09/09/24 17:12 97.6 Physical exam: General: Well alert, well oriented, not confused, not agitated, not in acute distress, well cooperated during the physical. HEENT: Conjunctive are pink, sclerae clear, no icterus, pupil is equal in both sides, reactive to light, no ear discharge, no pharyngeal erythema or an edema. Neck: Supple, no JVD, no lymphadenopathy and thyromegaly. Chest: Equal air entry on both lungs, diffuse bilateral wheezing. Cardiovascular: S1-S2 regular sinus rhythm and, regular rate, no gallops, no rubs, no murmurs Abdomen: No visible peristalsis, Bowel sounds present on auscultation, soft, nontender, no guarding, no rigidity Extremities: No obvious deformities, no pitting edema bilaterally, capillary refill intact, peripheral pulsations are intact on both sides Central Nervous System: No focal neurological deficits, no motor or sensory weakness in all 4 extremities, could move all 4 extremities, 2+ deep tendon reflexes, negative Babinski. Musculoskeletal: No joint swelling, deformities, inflammations, and no scoliosis and back tenderness Skin: Presence of scratches in bilateral lower extremities, as per patient her cat has been scratching his lower extremities. Diagnostic Data Last Recorded Lab Results: 09/09/24173009/09/241730 Advance Care Planning Advanced Care plannin - 30 Minutes (I spent a total of 17 minutes on reviewing various resuscitative measures/ACP with the patient at the time of admission. The patient has decided on a full code status.) Additional Plan Assessment and plan: 44-year-old female patient came to the hospital with chief complaint of shortness of breath. Acute and chronic hypoxemic respiratory failure: Possible multifactorial: Acute exacerbation of COPD: Pickwickian syndrome: Right-sided heart failure: Patient came to the hospital with chief complaint of shortness of breath. Diffuse wheezing is evidenced bilaterally on physical exam. The patient is currently on BiPAP. Echocardiogram in 08/15/2024: Normal LV size and wall thickness. Overall systolic function is normal. Septal flattening consistent with RV pressure/volume overload. LVEF is 60%. Right ventricle: RV appears severely dilated with normal contractility. RVSP is estimated at 77 mmHG. ProBNP 2040. Current D-dimer within reference range. Methylprednisolone 125 mg now. Methylprednisolone 60 mg t.i.d. Ceftriaxone 1 g daily. Azithromycin 500 mg daily. Duo nebs q.4h scheduled. DuoNeb q.2h p.r.n. [place] [address] mmu b.i.d. Lasix 40 mg IV daily. Strict I&O. Daily weight. Uncontrolled diabetes mellitus: Hemoglobin A1c on 08/14/2024 7.3. Current glucose levels 221. Hyperglycemia/hypoglycemia protocol in place. Lantus 22 units HS. Medium dose sliding scale short-acting insulin. Substance use disorder: The patient endorses that she has been using methamphetamines. Urine toxicology positive for amphetamines. Substance use navigator consulted. representative phlebotomy services consulted. Pulmonary embolism: DVT: The patient has a history of pulmonary embolism and deep vein thrombosis in the left lower extremity. Eliquis 5 mg b.i.d. History of schizophrenia: We will continue her home medication risperidone, aripiprazole, clonidine. Code status: Full code DVT prophylaxis: SCDs, the patient is on Eliquis. Analgesia/sedation: None Line/tube: PIV GI prophylaxis: None Nutrition: 75 carb controlled diet PT: Ordered Prognosis: Guarded Disposition: The patient will be admitted to PCU. Rico Gandhi Internal Medicine Resident [facility] I discussed patient with resident and agree with the plan and recommendations above. Shannan Pleitez MD Tele medicine Date of Service: September 09, 2024 Billing Provider: SHANNAN PLEITEZ MD, FRANCO LUIS, [facility] September 09, 2024 20:32 SHANNAN PLEITEZ MD September 10, 2024 04:02
[2024-09-09] MEDS ORDERED: methylPREDNISolone sod succ 125mg/2ml vial IV ONE (20:45)
[2024-09-09] MEDS ORDERED: ipratropium/albuterol 3ml nebule NEB PRN (20:45)
[2024-09-09] MEDS ORDERED: methylPREDNISolone sod succ/PF 40mg inj. IV ONE (20:56)
[2024-09-09] MEDS ORDERED: dextrose 50%-water 50ml dispensing syringe IV PRN ×2 (21:00)
[2024-09-09] MEDS ORDERED: DEXTROSE 15 GM of carb/4 tabs (each vial/BOTTLE has 4 tablets) PO PRN ×2 (21:00)
[2024-09-09] MEDS ORDERED: glucagon, human recombinant 1mg kit SUBCUT PRN (21:00)
[2024-09-09 21:15] LABS: D-DIMER < 0.19 MG/L FEU (0-0.50); INR 1.2 INR; PROTHROMBIN TIME 11.9 SECONDS (9.0-12.0)
[2024-09-09] MEDS: methylPREDNISolone sod succ/PF 40mg inj. IV ONE (21:34)
[2024-09-09] MEDS: furosemide 10 MG/1 ML 10ml inj IV SCH (21:39)
[2024-09-09] MEDS: CefTRIAXone/D5W-Rocephin 1gm 50 ML IV SCH (21:41)
[2024-09-09] MEDS: potassium Cl 20 mEq SR tablet PO PRN (21:42)
[2024-09-09] MEDS: lactobacillus rhamnosus 10,000 MMU CELLS/CAPSULE PO SCH (21:42)
[2024-09-09] MEDS: docusate sod 100mg capsule PO SCH (21:42)
[2024-09-09] MEDS: azithromycin 250mg tablet PO SCH (21:42)
[2024-09-09] MEDS ORDERED: FURO-149 PO (21:54)
[2024-09-09] MEDS ORDERED: GABA-1405 PO (21:54)
[2024-09-09] MEDS ORDERED: cloNIDine 0.1 mg tablet PO PRN (22:25)
[2024-09-09] MEDS: INSULIN LISPRO 100 UNIT/ML INSULN.PEN MULTI-DOSE SQ SCH (22:43)
[2024-09-09] MEDS: insulin glargine (Lantus) pen - multi-dose SQ SCH (22:44)
[2024-09-09 22:58] VITALS: PULSE 94; RESP 22; O2SAT 93
[2024-09-09] MEDS: ipratropium/albuterol 3ml nebule NEB SCH (23:00)
[2024-09-09 23:25] VITALS: BP 123/77; PULSE 91; RESP 26; TEMP 96.8; O2SAT 98
[2024-09-09 23:43] VITALS: RESP 18; O2SAT 98
[2024-09-10] VITALS (27 sets, daily range): BP systolic 104–139; BP diastolic 51–82; PULSE 78–104; RESP 16–29; TEMP 97.4–98.5; O2SAT 90–97
[2024-09-10 00:06] LABS: URINE AMPHETAMINE SCREEN POSITIVE (Neg); URINE BARBITUATE SCREEN NEGATIVE (Neg); URINE BENZODIAZEPINES SCREEN NEGATIVE (Neg); URINE CANNABINOID SCREEN NEGATIVE (Neg); URINE COCAINE SCREEN NEGATIVE (Neg); URINE METHADONE SCREEN NEGATIVE (Neg); URINE OPIATE SCREEN NEGATIVE (Neg); URINE PHENCYCLIDINE SCREEN NEGATIVE (Neg)
[2024-09-10] MEDS: risperiDONE 2mg tablet PO SCH (01:07)
[2024-09-10] MEDS: methylPREDNISolone sod succ/PF 40mg inj. IV SCH (04:01)
[2024-09-10 06:09] LABS: BASOPHILS # (AUTO) 0.1 X10'3 (0-0.2); EOSINOPHILS # (AUTO) 0.1 X10'3 (0-0.9); EOSINOPHILS % (AUTO) 0.6 % (0-6); HEMATOCRIT 41.3 % (35.0-45.0); HEMOGLOBIN 13.7 g/dl (12.0-16.0); LYMPHOCYTES # (AUTO) 1.1 X10'3 (1.1-4.8); LYMPHOCYTES % (AUTO) 11.9 % (21-51); MEAN CORPUSCULAR HEMOGLOBIN 28.6 PG (27.0-31.0); MEAN CORPUSCULAR HGB CONC 33.1 g/dL (33.0-36.5); MEAN CORPUSCULAR VOLUME 86.4 FL (78-98); MEAN PLATELET VOLUME 8.5 FL (7.4-10.4); MONOCYTES # (AUTO) 0.2 X10'3 (0-0.9); MONOCYTES % (AUTO) 1.7 % (2-12); NEUTROPHILS # (AUTO) 7.6 X10'3 (1.8-7.7); NEUTROPHILS % (AUTO) 84.8 % (42-75); PLATELET COUNT 331 X10'3 (140-440); RED BLOOD COUNT 4.79 X10'6 (4.20-5.60); RED CELL DISTRIBUTION WIDTH 16.3 % (11.5-14.5)
[2024-09-10 06:32] LABS: ALANINE AMINOTRANSFERASE 25 U/L (12-78); ALBUMIN 3.1 G/DL (3.4-5.0); ALBUMIN/GLOBULIN RATIO 0.7 (1.1-1.5); ALKALINE PHOSPHATASE 81 IU/L (46-116); ANION GAP 8 (8-16); ASPARTATE AMINO TRANSFERASE 17 U/L (10-37); BILIRUBIN,TOTAL 0.5 MG/DL (0.1-1.0); BLOOD UREA NITROGEN 14 MG/DL (7-18); BUN/CREATININE RATIO 17.5 (10.0-20.0); CALCIUM 8.9 MG/DL (8.5-10.1); CHLORIDE 103 MMOL/L (99-107); GLUCOSE 290 MG/DL (70-104); POTASSIUM 3.7 MMOL/L (3.5-5.1); PRO BRAIN NATRIURETIC PEPTIDE 1036 PG/ML (0-125); SODIUM 140 MMOL/L (135-145); TOTAL CARBON DIOXIDE 28.9 MMOL/L (24-32); TOTAL PROTEIN 7.4 G/DL (6.4-8.2); eCRCL 77 ML/MIN; eGFR 78 ML/MIN
[2024-09-10] MEDS ORDERED: methylPREDNISolone sod succ/PF 40mg inj. IV SCH (08:40)
[2024-09-10] MEDS ORDERED: ipratropium/albuterol 3ml nebule NEB PRN (08:40)
--- NOTE | 2024-09-10 12:50 | RADIOLOGY REPORT ---
Procedure: CT CT CHEST Reason for study/Clinical History: pneumonia Comparison Study: NoneNone available at time of dictation. Exam Date: 09/10/2024 12:15 PM TECHNIQUE: Multidetector CT of the chest was performed from the lung apices to the upper abdomen with out the use of intravenous contract. Axial, coronal and sagittal multiplanar reformats were performed . Radiation Dose Information: CT Dose: CTDI volume is 19 mGy. Dose-length product is 688 mGy*cm The dose indicators for CT are the volume Computed Tomography (CT) Dose Index (CTDIvol) and the Dose Length Product (DLP), and are measured in units of mGy and mGy-cm, respectively. These indicators are not patient dose, but values generated from the CT scanner acquisition factors. The report includes radiation exposure data for exposures received during this examination. FINDINGS: Lower neck: Normal thyroid. Lungs: Multiple ground-glass densities in the bilateral lung apices are suspicious for atypical pneum onia. Heart/Vascular Structures: Normal heart size. No pericardial effusion. Lymph Nodes: No adenopathy Pleura: No pleural effusion or significant pneumothorax. Musculoskeletal: No acute osseous abnormality. Soft tissues: Normal. Upper abdomen: Limited portions of the upper abdomen are unremarkable. Status post cholecystectomy. IMPRESSION: 1. Multiple ground-glass densities in the bilateral lung apices are suspicious for atypical pneumonia . Recommend follow-up noncontrast chest CT in 2-4 weeks to evaluate for resolution. Radiation optimization: All CT scans at this facility use at least one of these dose optimization annika hniques: automated exposure control mA and/or kV adjustment per patient size (includes targeted exam s where dose is matched to clinical indication) or iterative reconstruction.
[2024-09-10] MEDS: apixaban 5mg tablet PO SCH (13:07)
[2024-09-10] MEDS: cholecalciferol (vitamin D3) 1,000 unit (25mcg) tablet PO SCH (13:08)
[2024-09-10] MEDS: aripiprazole 5mg tablet PO SCH (13:08)
[2024-09-10] MEDS: FLUoxetine 20mg capsule PO SCH (13:09)
--- NOTE | 2024-09-10 17:00 | PROGRESS NOTE- Residence ---
Progress Note - Resident Providers to CC Resident Creating Document: KASHIF DIXON RES CC: AYESHA DOTSON MD ~ Antibiotic Timeout Antibiotic Ordered?: Yes Subjective Patient was examined bedside. Patient continues to be on BiPAP, complains of shortness of breaths if off of BiPAP. Patient was diagnosed with a pulmonary embolism/DVT one year ago, does not remember the reason why she had pulmonary embolism or DVT. Objective Vital Signs Date Time Temp Pulse Resp B/P (MAP) Pulse Ox O2 Delivery O2 Flow Rate FiO2 09/10/24 16:41 79 20 93 30 20 09/10/24 16:39 BiPAP+ 09/10/24 02:00 98.5 139/82 (101) 09/09/24 17:25 8.0 Result Diagram: 09/10/24 0516 09/10/24 0526 General: Morbidly obese, Alert, awake, oriented, in acute distress, on BiPAP HEENT: PERRLA, no icterus, pallor, lymphadenopathy, carotid bruit Respiratory system: Bilateral vesicular breath sounds heard, diffuse bilateral expiratory wheeze present CVS: S1-S2 heard, no murmurs/rubs/gallop GI: Soft, nontender, no organomegaly, no guarding/rigidity, bowel sounds present Neuro: No focal neurological deficits present Extremities: No edema cyanosis clubbing Musculoskeletal: No deformities Skin: Small abrasions present on bilateral lower extremities, Warm and dry Psych: Normal mood and affect Coagulation Studies Laboratory Tests Test 09/09/24 17:31 Prothrombin Time 11.9 SECONDS (9.0-12.0) INR International Normalized Ratio 1.2 INR D-Dimer < 0.19 MG/L FEU (0-0.50) D-Dimer Comment Coagulation Comments Assessment Assessment A 44-year-old female with a past medical history of COPD on home oxygen 4 L presented to the ED with shortness of breaths. Patient was admitted for the management and evaluation of acute on chronic hypoxemic respiratory failure secondary to COPD exacerbation and multifocal pneumonia. Plan Plan Acute and chronic hypoxemic/hypercapnic respiratory failure: 2/2 Acute exacerbation of COPD & multilobar bilateral pneumonia Obesity hypoventilation syndrome Cor pulmonale Compensated respiratory acidosis CT chest: Multiple ground-glass densities in the bilateral lung apices are suspicious for atypical pneumonia. Recommend follow-up noncontrast chest CT in 2-4 weeks to evaluate for resolution. Currently on BiPAP: 02/08, FiO2: 30%, titrate as required Target SpO2: 88-92% Continue IV ceftriaxone 1 g (day one), IV azithromycin 500 mg (day one) Duo nebs q.4h scheduled, DuoNeb q.2h p.r.n. IV methylprednisolone 60 mg q.8h [place] [id number] mmu b.i.d. Incentive spirometry and flutter valve IV Lasix 40 mg daily. Strict I&O. Daily weights. Uncontrolled diabetes mellitus, uncontrolled Hemoglobin A1c: 7.3. Hyperglycemia/hypoglycemia protocol in place. Lantus 24 units HS. High dose sliding scale short-acting insulin. Substance use disorder Urine toxicology positive for amphetamines. Substance use navigator consulted. financial services director consulted. Pulmonary embolism: DVT: Continue Eliquis 5 mg b.i.d. History of schizophrenia: Continue home medication risperidone, aripiprazole, clonidine. Code status: Full code DVT prophylaxis: SCDs, the patient is on Eliquis. Nutrition: 75 carb controlled diet Prognosis: Guarded Disposition: Continue care in PCU, continue RT therapy Kashif Dixon MD Internal Medicine, PGY 1 Date of Service: September 10, 2024 Billing Provider: AYESHA DOTSON MD,KASHIF, RES September 10, 2024 17:00
[2024-09-10] MEDS: INSULIN LISPRO 100 UNIT/ML INSULN.PEN MULTI-DOSE SQ SCH (21:42)
[2024-09-10] MEDS: insulin glargine (Lantus) pen - multi-dose SQ SCH (21:43)
[2024-09-11] VITALS (13 sets, daily range): BP systolic 117–153; BP diastolic 65–93; PULSE 80–104; RESP 16–24; TEMP 97.5–97.9; O2SAT 90–96
[2024-09-11 06:09] LABS: BASOPHILS % (AUTO) 0.2 % (0-1); EOSINOPHILS % (AUTO) 0 % (0-6); HEMATOCRIT 37.7 % (35.0-45.0); HEMOGLOBIN 12.7 g/dl (12.0-16.0); LYMPHOCYTES # (AUTO) 1.4 X10'3 (1.1-4.8); LYMPHOCYTES % (AUTO) 11.4 % (21-51); MEAN CORPUSCULAR HEMOGLOBIN 28.9 PG (27.0-31.0); MEAN CORPUSCULAR HGB CONC 33.7 g/dL (33.0-36.5); MEAN CORPUSCULAR VOLUME 85.5 FL (78-98); MEAN PLATELET VOLUME 8.6 FL (7.4-10.4); MONOCYTES # (AUTO) 0.9 X10'3 (0-0.9); MONOCYTES % (AUTO) 6.9 % (2-12); NEUTROPHILS # (AUTO) 10.2 X10'3 (1.8-7.7); NEUTROPHILS % (AUTO) 81.5 % (42-75); PLATELET COUNT 323 X10'3 (140-440); RED BLOOD COUNT 4.41 X10'6 (4.20-5.60); RED CELL DISTRIBUTION WIDTH 15.9 % (11.5-14.5); WHITE BLOOD COUNT 12.5 X10'3 (4.5-11.0)
[2024-09-11 06:33] LABS: ALANINE AMINOTRANSFERASE 17 U/L (12-78); ALBUMIN 2.9 G/DL (3.4-5.0); ALBUMIN/GLOBULIN RATIO 0.7 (1.1-1.5); ALKALINE PHOSPHATASE 76 IU/L (46-116); ANION GAP 5 (8-16); ASPARTATE AMINO TRANSFERASE 16 U/L (10-37); BILIRUBIN,TOTAL 0.4 MG/DL (0.1-1.0); BLOOD UREA NITROGEN 16 MG/DL (7-18); BUN/CREATININE RATIO 21.1 (10.0-20.0); CALCIUM 9.1 MG/DL (8.5-10.1); CHLORIDE 102 MMOL/L (99-107); CREATININE 0.76 MG/DL (0.40-0.90); GLUCOSE 267 MG/DL (70-104); MAGNESIUM 2.2 MG/DL (1.5-2.4); POTASSIUM 4.1 MMOL/L (3.5-5.1); SODIUM 137 MMOL/L (135-145); TOTAL PROTEIN 6.8 G/DL (6.4-8.2); eCRCL 82 ML/MIN; eGFR 83 ML/MIN
[2024-09-11] MEDS ORDERED: furosemide 40mg/4ml inj IV SCH (08:00)
[2024-09-11 08:08] LABS: ABG BASE EXCESS 1.6 mmol/L (-2.0-3.0); ABG HCO3 26.5 mmol/L (21.0-28.0); ABG OXYGEN SATURATION 94.9 % (94.0-98.0); ABG PCO2 (T) 42.3 mmHg (32.0-45.0); ABG PH (T) 7.414 (7.350-7.450); ABG PO2 (T) 71.5 mmHg (83.0-108.0); ALLEN'S TEST POSITIVE; FCOHb 0.8 % (0.5-1.5); FMetHb 0.3 % (0.0-1.5); FO2Hb 93.9 % (94.0-98.0); MODE MASK - BIPAP; PATIENT TEMPERATURE 36.6; TOTAL HEMOGLOBIN 13.7 G/dl (12.0-16.0)
[2024-09-11] MEDS: furosemide 40mg/4ml inj IV SCH (08:16)
[2024-09-11] MEDS: methylPREDNISolone sod succ/PF 40mg inj. IV SCH (13:01)
--- NOTE | 2024-09-11 17:53 | PROGRESS NOTE- Residence ---
Progress Note - Resident Providers to CC Resident Creating Document: KASHIF DIXON RES CC: AYESHA DOTSON MD ~ Antibiotic Timeout Antibiotic Ordered?: Yes Subjective Patient was examined bedside. Patient feels much better today, off of BiPAP. Patient requested to be going home but has been clearly explained of the potential complications and the clinical instability. Objective Vital Signs Date Time Temp Pulse Resp B/P (MAP) Pulse Ox O2 Delivery O2 Flow Rate FiO2 09/11/24 15:17 97.9 98 19 141/83 (102) 94 Nasal Cannula 3.0 09/11/24 15:08 36 Result Diagram: 09/11/24 0517 09/11/24 0517 General: Morbidly obese, Alert, awake, oriented, in acute distress, on BiPAP HEENT: PERRLA, no icterus, pallor, lymphadenopathy, carotid bruit Respiratory system: Bilateral vesicular breath sounds heard, diffuse bilateral expiratory wheeze improved CVS: S1-S2 heard, no murmurs/rubs/gallop GI: Soft, nontender, no organomegaly, no guarding/rigidity, bowel sounds present Neuro: No focal neurological deficits present Extremities: No edema cyanosis clubbing Musculoskeletal: No deformities Skin: Small abrasions present on bilateral lower extremities, Warm and dry Psych: Normal mood and affect Coagulation Studies Laboratory Tests Test 09/09/24 17:31 Prothrombin Time 11.9 SECONDS (9.0-12.0) INR International Normalized Ratio 1.2 INR D-Dimer < 0.19 MG/L FEU (0-0.50) D-Dimer Comment Coagulation Comments Assessment Assessment A 44-year-old female with a past medical history of COPD on home oxygen 4 L presented to the ED with shortness of breaths. Patient was admitted for the management and evaluation of acute on chronic hypoxemic respiratory failure secondary to COPD exacerbation and multifocal pneumonia. Plan Plan Acute and chronic hypoxemic/hypercapnic respiratory failure: 2/2 Acute exacerbation of COPD & multilobar bilateral pneumonia Obesity hypoventilation syndrome Cor pulmonale Compensated respiratory acidosis Currently on 3 L nasal cannula Target SpO2: 88-92% Continue IV ceftriaxone 1 g (day 2), IV azithromycin 500 mg (day2) Duo nebs q.4h scheduled, DuoNeb q.2h p.r.n. IV methylprednisolone 40 mg q.8h [place] 16567 mmu b.i.d. Incentive spirometry and flutter valve IV Lasix 40 mg daily. Strict I&O. Daily weights. Uncontrolled diabetes mellitus, uncontrolled Hemoglobin A1c: 7.3. Hyperglycemia/hypoglycemia protocol in place. Lantus 24 units HS. High dose sliding scale short-acting insulin, 10 units SQ PC Substance use disorder Urine toxicology positive for amphetamines. Substance use navigator consulted. banking services officer consulted. Pulmonary embolism: DVT: Continue Eliquis 5 mg b.i.d. History of schizophrenia: Continue home medication risperidone, aripiprazole, clonidine. Code status: Full code DVT prophylaxis: SCDs, the patient is on Eliquis. Nutrition: 75 carb controlled diet Prognosis: Guarded Disposition: Continue care in PCU, probable discharge in a day or two Kashif Dixon MD Internal Medicine, PGY 1 Date of Service: September 11, 2024 Billing Provider: AYESHA DOTSON MD, SIVA, RES September 11, 2024 17:52
[2024-09-11] MEDS ORDERED: INSULIN LISPRO 100 UNIT/ML INSULN.PEN MULTI-DOSE SQ SCH (18:00)
--- NOTE | 2024-09-11 18:02 | DISCHARGE SUMMARY-Residence ---
Discharge Summary Providers to CC Resident Creating Document: KASHIF DIXON RES CC: AYESHA DOTSON MD ~ Discharge Summary Assessment A 44-year-old female with a past medical history of COPD on home oxygen 4 L presented to the ED with shortness of breaths. Patient was admitted for the management and evaluation of acute on chronic hypoxemic respiratory failure secondary to COPD exacerbation and multifocal pneumonia. Admission Diagnosis: SOB Hospital Course DATE OF ADMISSION: 09/09/24 DATE OF AMA: 09/11/24 Discharge Diagnosis\Comment: Acute and chronic hypoxemic/hypercapnic respiratory failure: 2/2 Acute exacerbation of COPD & multilobar bilateral pneumonia (mixed Gram- positive and Gram-negative pneumonia) Obesity hypoventilation syndrome Cor pulmonale Compensated respiratory acidosis Sepsis on POA Operations\Procedures: NONE Consultants: None Complications: None Condition on DC: Unstable Discharge Summary: A 44-year-old female with a past medical history of COPD on home oxygen 4 L presented to the ED with shortness of breaths. Patient on further evaluation had respiratory acidosis, was requiring BiPAP. Patient was started on IV antibiotics, nebulization, steroids and IV Lasix. Patient was being managed for acute on chronic hypoxemic/hypercapnic respiratory failure and heart failure with reduced ejection fraction accordingly. Patient is off of BiPAP but still requiring hospital. Patient was clearly explained about the complications associated with leaving AMA, patient chose to leave AMA. Physical examination: General: Morbidly obese, Alert, awake, oriented, in acute distress, on BiPAP HEENT: PERRLA, no icterus, pallor, lymphadenopathy, carotid bruit Respiratory system: Bilateral vesicular breath sounds heard, diffuse bilateral expiratory wheeze improved CVS: S1-S2 heard, no murmurs/rubs/gallop GI: Soft, nontender, no organomegaly, no guarding/rigidity, bowel sounds present Neuro: No focal neurological deficits present Extremities: No edema cyanosis clubbing Musculoskeletal: No deformities Skin: Small abrasions present on bilateral lower extremities, Warm and dry Psych: Normal mood and affect As the patient left AMA, patient also did not wait until the IV line was removed and home medications could be given. Patient was vividly aware and has not insight of her clinical condition and the complications associated with going out of the hospital at this time. *Problems/Diagnosis: (1) Respiratory failure Status: Acute (2) Pulmonary embolism Status: Acute (3) COPD exacerbation Status: Acute Total Time Spent on D/C: > 30 Minutes Date of Service: September 11, 2024 Billing Provider: AYESHA DOTSON MD, SIVA, RES September 11, 2024 18:02
== END 2024-09-11 19:00 | disposition left against medical advice (07) | DRG 720 ==
LOC: ER 16:57 → ED HOLD 20:02 → EDBEDREQ 22:42 → PCU 3S 23:10
PROVIDERS: ADMIT Internal Medicine Pulmonary Disease; ATTEND Family Medicine
PROC: 5A09457 Assistance with Respiratory Ventilation, 24-96 Consecutive Hours, Continuous Positive Airway Pressure (ICD-10-PCS; principal; 2024-09-09)
DX: A41.9 Sepsis, unspecified organism (principal); J96.21 Acute and chronic respiratory failure with hypoxia; I26.09 Other pulmonary embolism with acute cor pulmonale; J15.69 Pneumonia due to other Gram-negative bacteria; E87.20 Acidosis, unspecified; J15.9 Unspecified bacterial pneumonia; E66.2 Morbid (severe) obesity with alveolar hypoventilation; I50.20 Unspecified systolic (congestive) heart failure; J96.22 Acute and chronic respiratory failure with hypercapnia; Z99.81 Dependence on supplemental oxygen; Z20.822 Contact with and (suspected) exposure to COVID-19; J44.1 Chronic obstructive pulmonary disease with (acute) exacerbation; J44.0 Chronic obstructive pulmonary disease with (acute) lower respiratory infection; Z53.21 Procedure and treatment not carried out due to patient leaving prior to being seen by health care provider; J45.901 Unspecified asthma with (acute) exacerbation; E11.9 Type 2 diabetes mellitus without complications; F20.9 Schizophrenia, unspecified; Z79.01 Long term (current) use of anticoagulants; Z79.899 Other long term (current) drug therapy; Z90.49 Acquired absence of other specified parts of digestive tract; Z88.2 Allergy status to sulfonamides; Z68.41 Body mass index [BMI] 40.0-44.9, adult
CPT/HCPCS: 36415; 36600; 71045; 71250; 80053; 80305; 80320; 82803; 82948; 83605; 83735; 83880; 84145; 84484; 85018; 85025; 85379; 85610; 87040; 87081; 87811; 93005; 94640; 94660; 94760; 96365; 97116; 97161; 97530; 99291; A4620; A7015; G0378; J0696; J1815; J1938; J1940; J2919; J7040

== ENCOUNTER 2024-10-02 13:28 | Inpatient (IN) | payer MEDICAID ==
[~2024-10-02] VITALS: Ht 157.5 cm; Wt 121.6 kg
[2024-10-02] VITALS (9 sets, daily range): PULSE 101–112; RESP 21–28; O2SAT 92–97
[~2024-10-02 13:28] MED LIST changes: +FURO-149 PO; -FURO-150 PO; -PRED10TA PO
--- NOTE | 2024-10-02 13:54 | ELECTROCARDIOGRAPH REPORT ---
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 Gerry Fall Measurements Intervals [place] Rate: 110 P: 58 [place]: 154 QRS: 130 QRSD: 83 T: 18 QT: 373 QTc: 505 Interpretive Statements Sinus tachycardia Probable left atrial enlargement Low voltage, precordial leads Probable right ventricular hypertrophy Borderline prolonged QT interval Electronically Signed On 10-04-2024 11:02:[address] Gerry Fall Please click the below link to view image of tracing.
[2024-10-02 13:59] LABS: BASOPHILS # (AUTO) 0.1 X10'3 (0-0.2); BASOPHILS % (AUTO) 0.9 % (0-1); EOSINOPHILS # (AUTO) 0.3 X10'3 (0-0.9); EOSINOPHILS % (AUTO) 3.3 % (0-6); HEMATOCRIT 43.5 % (35.0-45.0); HEMOGLOBIN 14.6 g/dl (12.0-16.0); LYMPHOCYTES # (AUTO) 0.7 X10'3 (1.1-4.8); LYMPHOCYTES % (AUTO) 8.4 % (21-51); MEAN CORPUSCULAR HEMOGLOBIN 28.5 PG (27.0-31.0); MEAN CORPUSCULAR HGB CONC 33.6 g/dL (33.0-36.5); MEAN CORPUSCULAR VOLUME 84.8 FL (78-98); MONOCYTES # (AUTO) 0.9 X10'3 (0-0.9); MONOCYTES % (AUTO) 11.1 % (2-12); NEUTROPHILS # (AUTO) 6.3 X10'3 (1.8-7.7); NEUTROPHILS % (AUTO) 76.3 % (42-75); PLATELET COUNT 262 X10'3 (140-440); RED BLOOD COUNT 5.12 X10'6 (4.20-5.60); RED CELL DISTRIBUTION WIDTH 16.6 % (11.5-14.5); WHITE BLOOD COUNT 8.3 X10'3 (4.5-11.0)
[2024-10-02] MEDS ORDERED: iohexol 350MG/ML 100ml bottle IV ONE (14:20)
[2024-10-02 14:24] LABS: ALBUMIN 3.5 G/DL (3.4-5.0); ANION GAP 8 (8-16); BLOOD UREA NITROGEN 12 MG/DL (7-18); BUN/CREATININE RATIO 11.8 (10.0-20.0); CALCIUM 8.7 MG/DL (8.5-10.1); CHLORIDE 102 MMOL/L (99-107); CREATININE 1.02 MG/DL (0.40-0.90); GLUCOSE 258 MG/DL (70-104); POTASSIUM 3.2 MMOL/L (3.5-5.1); PRO BRAIN NATRIURETIC PEPTIDE 1660 PG/ML (0-125); SODIUM 139 MMOL/L (135-145); TOTAL CARBON DIOXIDE 29.1 MMOL/L (24-32); eCRCL 56 ML/MIN; eGFR 59 ML/MIN
[2024-10-02] MEDS ORDERED: heparin 10,000 units/1 ML INJ IV PRN ×2 (14:25→18:35)
[2024-10-02] MEDS ORDERED: heparin 25,000 UNIT/250ml bag 250 ML IV PRN (14:25)
[2024-10-02] MEDS ORDERED: heparin 10,000 units/1 ML INJ IV ONE (14:25)
--- NOTE | 2024-10-02 14:27 | RADIOLOGY REPORT ---
CHEST RADIOGRAPH Indication: sob hypoxia Technique: Single frontal view of the chest was obtained Comparison: DI CHEST,SINGLE VIEW on DOS: 09/09/24, DI CHEST,SINGLE VIEW on DOS: 08/14/24 FINDINGS: Lines and Tubes: None Lungs: Mild CHF. Pleura: No effusion. No pneumothorax. Cardiomediastinal contours: Unremarkable Bones: No acute osseous abnormality. IMPRESSION: Mild CHF.
[2024-10-02] MEDS: LidoCAINE 2% Topical Jelly 11mL syringe (UROJET) TOP ONE (14:40)
[2024-10-02] MEDS: furosemide 10 MG/1 ML 10ml inj IV ONE (14:52)
--- NOTE | 2024-10-02 14:58 | Physician Documentation ---
History of Present Illness ~ Chief Complaint: Shortness of Breath Stated Complaint: LOW O2 Time Seen by MD: 13:54 Primary Medical Doctor: [facility] Mode of Arrival: POV HPI 44-year-old female history of chronic hypoxic respiratory failure on 4 L nasal cannula, COPD, recurrent pulmonary embolism, pulmonary hypertension?, methamphetamine use, tobacco use presenting for increasing shortness of breath and lower extremity edema. Reviewed discharge summary September 09, 2024 COPD on 4 L home oxygen therapy admitted for acute on chronic hypoxemic respiratory failure secondary to COPD exacerbation and multifocal pneumonia She was given IV antibiotics nebulizer steroids and Lasix. She was on BiPAP initially weaned off had some improvement she then left against medical advice Reviewed discharge summary August 18, 2024 acute hypoxemic respiratory failure secondary to COPD exacerbation, acute exacerbation of COPD, medication noncompliance recurrent pulmonary embolism despite anticoagulation with Eliquis methamphetamine use Medication Reconciliation Allergies: Coded Allergies: Sulfa (Sulfonamide Antibiotics) (Verified Allergy, Severe, SWELLING, 09/09/24) Scheduled Apixaban (Eliquis), 5 MG PO BID Aripiprazole* (Abilify*), 1 TAB PO DAILY Cholecalciferol (Vitamin D), 5 TAB PO DAILY Clonidine HCl (Clonidine HCl), 1 TAB PO BID, (Reported) Fluoxetine Hcl* (Prozac*), 3 CAP PO DAILY Fluticasone Propionate (Flonase Allergy Relief), 2 SPRAYS BOTHNARES DAILY Furosemide* (Lasix*), 1 TAB PO DAILY, (Reported) Gabapentin (Gabapentin), 1 TAB PO BID, (Reported) Ipratropium/Albuterol Sulfate (Combivent Respimat Inhal [place]), 1 PUFFS INH Q6H, (Reported) Risperidone (Risperidone), 1 TAB PO HS Semaglutide (Ozempic), 2 MG SUBCUT Q7D Scheduled PRN Albuterol Sulfate Nebs* (Proventil Nebs*), 2.5 MG IH Q6H PRN for SOB or wheezing Discontinued Medications Budesonide (Pulmicort Flexhaler), 2 PUFFS INH Q12H Discontinued Reason: patient no longer taking Budesonide Neb* (Pulmicort Neb*), 1 VIAL NEB Q12H Discontinued Reason: patient no longer taking Clonidine HCl (Clonidine HCl), 1 TAB PO HSMR1 PRN for agitation Discontinued Reason: patient no longer taking Furosemide (Lasix), 1 TAB PO BIDAC, (Reported) Discontinued Reason: patient no longer taking Gabapentin (Gabapentin), 1 TAB PO DAILY, (Reported) Discontinued Reason: patient no longer taking Tiotropium Br/Olodaterol HCl (Stiolto Respimat Inhal [place]), 1 INH INH BID Discontinued Reason: patient no longer taking Past Medical History Past Medical History: Diabetes Past Surgical History: cholecystectomy Smoking Status: Never smoker Alcohol Use: Sober Drug Use: methamphetamine Lives with: Other Lives In: Home Occupation: unemployed Review of Systems Constitutional: Denies: fever Respiratory: Reports: shortness of breath, SOB with exertion, SOB at rest; Denies: cough, orthopnea, stridor Cardiovascular: Denies: chest pain Gastrointestinal: Denies: abdominal pain Physical Exam Vital Signs: Temperature: 99.3, Source: Oral, Heart Rate: 110, Respiratory R ate: 30, BP: 125/83, Pulse Oximetry: 92, Weight: 121.600 Oxygen Flow Rate: 15.0 Physical Exam Chronically ill toxic respiratory distress tripoding Lungs clear to auscultation bilaterally no wheezing rhonchi or rales Cardiac no murmur Abdomen is soft nontender Lower extremity 1+ pitting edema bilaterally Progress Progress Note 1:40 p.m. called to bedside by nursing staff patient in hypoxic respiratory failure on non-rebreather 2 p.m. bedside ultrasound performed no pneumothorax no pleural effusion no flash pulmonary edema, normal ejection fraction 2:30 p.m. personally accompanied patient to CT scanner. Reviewed CTA live, no saddle pulmonary embolus 3:00 p.m. patient is still hypoxic now wheezing we will order Duo nebs and start BiPAP 3:30 p.m. reassessed patient still critical 4:00 p.m. reassessed patient she is on BiPAP more stable 5:00 p.m. reassess patient she appears more comfortable on BiPAP breathing is much improved Consulted hospitalist who agrees with management plan and graciously accept for admission Results/Orders Results/Orders Orders - MAURO VASQUEZ MD Culture Blood (10/02/24 13:42) Chest,Single View (10/02/24 13:42) Monitor (10/02/24 13:42) Saline Lock (10/02/24 13:42) Hs Troponin I W Calculations (10/02/24 16:42) Cta Chest Pe (10/02/24 14:31) * (A) [facility]- Protocol * Q12H@07,19 (10/02/24 14:37) Bipap/Cpap (10/02/24 ) Abg (Arterial Blood Gas) (10/02/24 ) Abg Current Settings (10/02/24 ) Heparin 25,000 Unit/250ml Bag (Heparin 2 (10/02/24 18:35) Heparin 10,000 Unit/Ml 1ml (Heparin 10,0 (10/02/24 18:35) Page Hospitalist (10/02/24 18:34) Fill Out Med Reconciliation (10/02/24 18:34) Completed Orders - MAURO VASQUEZ MD Cbc/Diff (10/02/24 13:42) Chest,Single View (10/02/24 13:42) Electrocardiogram (10/02/24 13:42) Procalcitonin (10/02/24 13:42) BMP (10/02/24 13:42) Hs Troponin I W Calculations (10/02/24 13:42) Hs Troponin I W Calculations (10/02/24 15:42) Lacticsepsis (10/02/24 13:42) Ipratropium/Albuterol Nebule (Ipratrop/A (10/02/24 13:55) PBNP (10/02/24 13:52) Cta Chest Pe (10/02/24 14:31) Iohexol 350mg/Ml 100ml (Omnipaque 350mg/ (10/02/24 14:20) Heparin 10,000 Unit/Ml 1ml (Heparin 10,0 (10/02/24 14:25) Heparin 25,000 Unit/250ml Bag (Heparin 2 (10/02/24 14:25) Heparin 10,000 Unit/Ml 1ml (Heparin 10,0 (10/02/24 14:25) Furosemide Inj (Lasix Inj) (10/02/24 14:40) Lidocaine 2% Jelly 11ml Syr (Glydo-Lidoc (10/02/24 14:40) Albuterol 2.5mg/3ml Nebule (Proventil 2. (10/02/24 15:15) * Rt Notification Q1H (10/02/24 15:12) Ua W/Microscopic, Cult If Ind (10/02/24 15:40) Pt Inr (10/02/24 18:34) PTT (10/02/24 18:34) Heparin 10,000 Unit/Ml 1ml (Heparin 10,0 (10/02/24 18:35) MG (10/02/24 13:52) Vital Signs 10/02/24 10/02/24 10/02/24 10/02/24 13:38 13:50 14:47 15:05 Temp 99.3 Pulse 113 110 107 Resp B/P (MAP) 122/78 125/83 (97) Pulse Ox 86 92 O2 Delivery Non-Rebreather O2 Flow Rate 15.0 15.0 16 FiO2 100 10/02/24 10/02/24 10/02/24 10/02/24 15:15 15:35 15:56 15:58 Temp 99.3 Pulse 111 108 103 Resp B/P (MAP) 140/84 (102) Pulse Ox 92 96 97 O2 Delivery Non-Rebreather BiPAP+ O2 Flow Rate 16 16.0 8.0 FiO2 100 100 60 10/02/24 10/02/24 10/02/24 10/02/24 16:00 16:17 16:39 17:34 Temp 99.3 99.3 Pulse 104 107 105 110 Resp B/P (MAP) 133/89 (104) 106/90 (95) Pulse Ox 97 99 96 94 O2 Flow Rate 8.0 8.0 FiO2 60 60 60 10/02/24 10/02/24 18:20 19:33 Temp 99.3 Pulse 110 112 Resp B/P (MAP) 114/71 (85) Pulse Ox 95 92 O2 Flow Rate 8.0 FiO2 60 50 Laboratory Tests Test 10/02/24 13:52 10/02/24 15:38 10/02/24 15:40 10/02/24 15:59 White Blood Count 8.3 Red Blood Count 5.12 Hemoglobin 14.6 Hematocrit 43.5 Mean Corpuscular Volume 84.8 Mean Corpuscular Hemoglobin 28.5 Mean Corpuscular Hemoglobin Concent 33.6 Red Cell Distribution Width 16.6 H Platelet Count 262 Mean Platelet Volume 9.0 Neutrophils (%) (Auto) 76.3 H Lymphocytes (%) (Auto) 8.4 L Monocytes (%) (Auto) 11.1 Eosinophils (%) (Auto) 3.3 Basophils (%) (Auto) 0.9 Neutrophils # (Auto) 6.3 Lymphocytes # (Auto) 0.7 L Monocytes # (Auto) 0.9 Eosinophils # (Auto) 0.3 Basophils # (Auto) 0.1 CBC Comment Sodium Level 139 Potassium Level 3.2 L Chloride Level 102 Carbon Dioxide Level 29.1 Anion Gap 8 Blood Urea Nitrogen 12 Creatinine 1.02 H Estimated GFR/1.73 m2 59 BUN/Creatinine Ratio 11.8 Glucose Level 258 H Lactic Acid Level 1.8 Calcium Level 8.7 Magnesium Level 1.8 Troponin I High Sensitivity 32 26 Pro-B-Type Natriuretic Peptide 1660 H Albumin 3.5 Procalcitonin < 0.05 Chemistry Comments Blood Gas Specimen Type Arterial Blood Gas Puncture Site Rr O2 Saturation 95.5 Arterial Blood pH (Temp corrected) 7.398 Arterial Blood pCO2 (Temp correct) 42.8 Arterial Blood pO2 (Temp corrected) 82.1 L Arterial Blood PO2/FiO2 Ratio 0.82 Arterial Blood HCO3 25.8 Arterial Blood Base Excess 0.8 Arterial Blood Oxyhemoglobin 94.5 Arterial Blood Carboxyhemoglobin 0.7 Arterial Blood Methemoglobin 0.3 Arterial Blood Deoxyhemoglobin 4.5 Narayan Test Positive Blood Gas Hemoglobin 14.4 Blood Gas Temperature 37.0 Blood Gas Modality Mask - nrb FiO2 100.0 Urine Specimen Description Non-specified Urine Color Yellow Urine Clarity Clear Urine pH 6.0 Urine Specific [place] 1.010 Urine Protein Trace Urine Glucose (UA) Negative Urine Ketones Negative Urine Occult Blood Small Urine Nitrite Negative Urine Bilirubin Negative Urine Urobilinogen 0.2 Urine Leukocyte Esterase Negative Urine RBC 3-10 Urine WBC 0-4 Urine Squamous Epithelial Cells Few Urine Transitional Epithelial Cells Few Urine Calcium Oxalate Crystals Few Urine Bacteria None seen Urine Hyaline Casts 0-3 Urine Culture Indicated Not ind Volume Urine Centrifuged 10 ml Urine Comment Urine Opiates Screen Negative Urine Methadone Screen Negative Urine Fentanyl Screen Negative Urine Barbiturates Screen Negative Urine Phencyclidine Screen Negative Urine Amphetamines Screen Positive Urine Benzodiazepines Screen Negative Urine Cocaine Screen Negative Urine Cannabinoids Screen Positive Drug Screen Comment Troponin I High Sens Percent Delta 18 Troponin I Hi Sens Absolute Change -6 Test 10/02/24 18:05 10/02/24 18:50 Blood Gas Specimen Type Arterial Blood Gas Puncture Site Rb O2 Saturation 91.4 L Arterial Blood pH (Temp corrected) 7.415 Arterial Blood pCO2 (Temp correct) 42.0 Arterial Blood pO2 (Temp corrected) 62.5 L Arterial Blood PO2/FiO2 Ratio 1.25 Arterial Blood HCO3 26.3 Arterial Blood Base Excess 1.6 Arterial Blood Oxyhemoglobin 91.4 L Arterial Blood Carboxyhemoglobin 0.0 L Arterial Blood Methemoglobin 0.0 Arterial Blood Deoxyhemoglobin 8.6 H Narayan Test Positive Blood Gas Hemoglobin 14.5 Blood Gas Temperature 37.0 Blood Gas Modality Mask - bipap FiO2 40.0 Blood Gas PEEP 5 Prothrombin Time 11.8 INR International Normalized Ratio 1.2 Activated Partial Thromboplast Time 35 H Coagulation Comments Microbiology Date/Time Source Procedure Growth Status 10/02/24 15:59 Blood Arm Left Blood Culture - Preliminary NEGATIVE (LESS THAN 24 HOURS) Resulted EKG/XRAY/CT/US/VASC/MRI EKG : Additional Comment EKG independently interpreted by myself time 1352 indication dyspnea sinus tachycardia rate [address] right axis deviation no ST or T-wave abnormalities CT : Impression Independent interpretation of CT angio shows no saddle pulmonary embolism Medical Decision Making Additional info obtained from: old records Findings CARE THE PATIENT WAS TRANSFERRED TO [place] FROM DR. VASQUEZ AT APPROXIMATELY 6:50 P.M.. 8:00 P.M.: CASE DISCUSSED WITH THE HOSPITALIST, DR. MORE. SHE WILL ACCEPT THE PATIENT FOR ADMISSION. Departure Time of Disposition: 20:09 Disposition: ADMITTED INPATIENT Admitted to Inpatient Unit: to hospitalist Admission Level of Care: Med/Surg with Tele Impression: Primary Impression: Pulmonary embolus Qualified Codes: I26.99 - Other pulmonary embolism without acute cor pulmonale Additional Impression: Acute hypoxic respiratory failure Condition: Fair Education Educated: Patient Educated regarding: diagnosis, treatment Critical Care Note Total Time (mins): 125 Critical Care Note The very real possibility of a deterioration of this patient's condition required the highest level of my preparedness for sudden, emergent intervention. I provided critical care services, which included medication orders, frequent reevaluations of the patient's condition and response to treatment, ordering and reviewing test results, and discussing the case with various consultants. Excludes time spent performing separately billable procedures. The critical care time associated with the care of the patient was 125 minutes in the management of acute hypoxic respiratory failure requiring BiPAP Signature Scribe Signature: No scribe Attestation: No [email or web address] MAURO VASQUEZ MD October 02, 2024 14:58 STEPHANIE MERCEDES MD October 02, 2024 20:10
[2024-10-02] MEDS: ipratropium/albuterol 3ml nebule NEB ONE (15:05)
[2024-10-02 15:42] LABS: ABG BASE EXCESS 0.8 mmol/L (-2.0-3.0); ABG HCO3 25.8 mmol/L (21.0-28.0); ABG OXYGEN SATURATION 95.5 % (94.0-98.0); ABG PCO2 (T) 42.8 mmHg (32.0-45.0); ABG PH (T) 7.398 (7.350-7.450); ABG PO2 (T) 82.1 mmHg (83.0-108.0); ALLEN'S TEST POSITIVE; FCOHb 0.7 % (0.5-1.5); FHHb 4.5 % (0.0-5.0); FMetHb 0.3 % (0.0-1.5); FO2Hb 94.5 % (94.0-98.0); MODE MASK - NRB; TOTAL HEMOGLOBIN 14.4 G/dl (12.0-16.0)
[2024-10-02] MEDS: albuterol 2.5 MG/3 ML nebule CONTNEB ONE (15:51)
[2024-10-02 15:55] LABS: BILIRUBIN,URINE NEGATIVE (Neg); CLARITY,URINE CLEAR (Clear); COLOR,URINE YELLOW (Yellow); GLUCOSE, URINE NEGATIVE (Neg); KETONES,URINE NEGATIVE (Neg); LEUKOCYTE ESTERASE ,URINE NEGATIVE (Neg); NITRITES, URINE NEGATIVE (Neg); OCCULT BLOOD,URINE SMALL (Neg); PROTEIN,URINE TRACE mg/dl (Neg); UROBILINOGEN,URINE 0.2 E.U/dL (0.2-1.0)
[2024-10-02 15:58] LABS: UA COLLECTION TYPE NON-SPECIFIED
[2024-10-02 16:01] LABS: BACTERIA,URINE NONE SEEN /HPF (Neg); CAL OXALATE CRYSTALS FEW /HPF (NEGATIVE); SQUAMOUS EPITHELIAL CELL,UR FEW /LPF (FEW); TRANSITIONAL EPI CELLS,URINE FEW /HPF; WBC,URINE 0-4 /HPF (0-4)
[2024-10-02 16:02] LABS: HYALINE CASTS 0-3 /LPF (NEGATIVE)
[2024-10-02 18:09] LABS: ABG BASE EXCESS 1.6 mmol/L (-2.0-3.0); ABG HCO3 26.3 mmol/L (21.0-28.0); ABG OXYGEN SATURATION 91.4 % (94.0-98.0); ABG PH (T) 7.415 (7.350-7.450); ABG PO2 (T) 62.5 mmHg (83.0-108.0); ALLEN'S TEST POSITIVE; FHHb 8.6 % (0.0-5.0); FO2Hb 91.4 % (94.0-98.0); MODE MASK - BIPAP; PEEP 5 cm H2O; TOTAL HEMOGLOBIN 14.5 G/dl (12.0-16.0)
--- NOTE | 2024-10-02 18:28 | RADIOLOGY REPORT ---
CTA Chest with intravenous contrast INDICATION: sob COMPARISON: CT CTA CHEST PE W/ IV CONTRAST on DOS: 08/14/24 TECHNIQUE: Multidetector spiral CTA of the chest was performed of the chest with intravenous contrast . PULMONARY ANGIOGRAPHY PROTOCOL was utilized using a bolus-tracking technique centered on the main p ulmonary artery. Axial, coronal and sagittal multiplanar and MIP reformats were performed. Radiation Dose : 1. Chest: CTDI volume is 24.91 mGy. Dose-length product is 984.74 mGy*cm The dose indicators for CT are the volume Computed Tomography (CT) Dose Index (CTDIvol) and the Dose Length Product (DLP), and are measured in units of mGy and mGy-cm, respectively. These indicators are not patient dose, but values generated from the CT scanner acquisition factors. The report includes radiation exposure data for exposures received during this examination. Findings: The thyroid gland is unremarkable. Artifact limits evaluation for pulmonary embolism with filling defects within the right lower lobe se gmental and subsegmental pulmonary arteries. There is filling defect within left lower lobe segmental pulmonary artery. Limited evaluation for right heart strain given prominence of the right ventricle noted on prior imaging. No evidence of aortic aneurysm or dissection. Prominence of the pulmonary trunk measuring up to 37 mm which may be seen with pulmonary arterial hypertension. Bilateral hilar lymphadenopathy. Mild cardiomegaly with small pericardial effusion. Reflux of contrast into the IVC and hepatic veins suggestive of right heart dysfunction. Scattered bilateral lung atelectasis. Patchy ground-glass opacities right upper lobe which may be fro m infectious/inflammatory process. No pneumothorax or pleural effusion. Partial view of the upper abdomen is unremarkable. Minimal body wall edema. No destructive osseous lesions are noted. IMPRESSION: Motion artifact limits evaluation for pulmonary embolism. There appears to be pulmonary embolism involving the right lower lobe segmental and subsegmental pulm onary arteries ; relatively unchanged from 08/14/2024. Additional left lower lobe subsegmental pulmon belgica embolism is noted. No evidence of aortic aneurysm or dissection. Ground-glass opacities over the right upper lobe with right posterior upper lobe nodularity which may be from infectious/inflammatory process ; improved from 09/10/2024. Additional findings as above. Critical Result: Pulmonary embolism Findings discussed with MAURO VASQUEZ at 10/02/2024 06:25 PM, and acknowledged receipt and underst anding of the findings. ..
[2024-10-02 19:10] LABS: APTT 35 SECONDS (22-32); INR 1.2 INR; PROTHROMBIN TIME 11.8 SECONDS (9.0-12.0)
[2024-10-02] MEDS: methylPREDNISolone sod succ 125mg/2ml vial IV ONE (19:42)
[2024-10-02] MEDS: heparin 25,000 UNIT/250ml bag 250 ML IV PRN (20:00)
[2024-10-02] MEDS: heparin 10,000 units/1 ML INJ IV ONE (20:02)
[2024-10-02] MEDS: MESSAGE TO NURSING IV ONE (20:03)
[2024-10-02] MEDS ORDERED: magnesium sulf-water 2g/50mL 50 ML IV PRN (20:10)
[2024-10-02] MEDS ORDERED: ipratropium/albuterol 3ml nebule NEB PRN (20:10)
[2024-10-02] MEDS ORDERED: mag hydrox/Alum hydrox/simeth 30ml oral suspension PO PRN (20:10)
[2024-10-02] MEDS ORDERED: magnesium sulf-water 4G/100mL 100 ML IV PRN (20:10)
[2024-10-02] MEDS ORDERED: morphine 2 MG/ML inj. syringe IV PRN ×2 (20:10)
[2024-10-02] MEDS ORDERED: potassium Cl 20 mEq SR tablet PO PRN (20:10)
[2024-10-02] MEDS ORDERED: magnesium hydroxide 30ml (MOM) UD suspension PO PRN (20:10)
[2024-10-02] MEDS ORDERED: potassium Cl 40MEQ/1/2NS 520ml 520 ML IV PRN (20:10)
[2024-10-02] MEDS ORDERED: ondansetron/PF 4mg/2ml inj IV PRN (20:10)
[2024-10-02] MEDS ORDERED: magnesium Cl slow-release 64mg tablet PO PRN (20:10)
[2024-10-02] MEDS ORDERED: glucagon, human recombinant 1mg kit SUBCUT PRN (20:20)
[2024-10-02] MEDS ORDERED: DEXTROSE 15 GM of carb/4 tabs (each vial/BOTTLE has 4 tablets) PO PRN ×2 (20:20)
[2024-10-02] MEDS ORDERED: dextrose 50%-water 50ml dispensing syringe IV PRN ×2 (20:20)
[2024-10-02 20:38] LABS: MAGNESIUM 1.8 MG/DL (1.5-2.4)
[2024-10-02 20:51] LABS: URINE AMPHETAMINE SCREEN POSITIVE (Neg); URINE BARBITUATE SCREEN NEGATIVE (Neg); URINE BENZODIAZEPINES SCREEN NEGATIVE (Neg); URINE CANNABINOID SCREEN POSITIVE (Neg); URINE COCAINE SCREEN NEGATIVE (Neg); URINE METHADONE SCREEN NEGATIVE (Neg); URINE OPIATE SCREEN NEGATIVE (Neg); URINE PHENCYCLIDINE SCREEN NEGATIVE (Neg)
[2024-10-02] MEDS: insulin glargine (Lantus) pen - multi-dose SQ SCH (20:53)
[2024-10-02] MEDS: INSULIN LISPRO 100 UNIT/ML INSULN.PEN MULTI-DOSE SQ SCH (20:54)
[2024-10-02] MEDS ORDERED: CLON0.1T2 PO (21:01)
[2024-10-02] MEDS ORDERED: GABA-1405 PO (21:01)
[2024-10-02] MEDS ORDERED: FURO-150 PO (21:01)
[2024-10-02] MEDS ORDERED: IPRA4AER INH (21:04)
--- NOTE | 2024-10-02 22:42 | HISTORY AND PHYSICAL-Residence ---
History & Physical Providers to CC Resident Creating Document: ARTIS PARISH, RES ~ History of Present Illness Primary Medical Doctor: [facility] Reason for Admit\Complaint: Pulmonary embolus/COPD exacerbation History of Present Illness This is a 44-year-old female with history of methamphetamine uses, chronic smoking, COPD, on 4 L of oxygen at home, recurrent pulmonary embolism, DVT, obstructive sleep apnea, insulin-dependent diabetes mellitus came to the ER with a chief complaint of exacerbation of shortness of breadth. Patient was admitted on 09/09/2024 and left AMA on 09/11/2024, was treated for acute exacerbation of COPD, multilobar bilateral pneumonia. She was doing fine until yesterday. Yesterday evening she had sudden onset of difficulty in breathing, which was worse on lying down, her oxygen saturation was maintaining between 74-89. She also endorsed cough since one week, associated with white sputum. Denied any fever, nasal congestion. Also denied chest pain, palpitations, lightheadedness. Noticed some increasing leg swellings, reports increased salt intake recently. Denies any recent sick contacts or any recent travel history. She mentions she has been compliant with her medications including Eliquis. Allergies: Coded Allergies: Sulfa (Sulfonamide Antibiotics) (Verified Allergy, Severe, SWELLING, 09/09/24) Home Medications Home Medications Active Eliquis (Apixaban) 5 Mg Tablet 5 Mg PO BID 37 Days Take two tablets of 5 mg in the morning, two tablets of 5 mg in the evening for one week. After one week. Take 5 mg twice daily for the next six months. Follow up with your primary care provider regularly. Ozempic (Semaglutide) 2 Mg/0.75 Ml (8 Mg/3 Ml) Pen.injctr 2 Mg SUBCUT Q7D 30 Days Risperidone 4 Mg Tab.rapdis 1 Tab PO HS 30 Days Flonase Allergy Relief (Fluticasone Propionate) 50 Mcg/Actuation Amity.susp 2 Sprays BOTHNARES DAILY 30 Days Prozac* (Fluoxetine HCl) 20 Mg Capsule 3 Cap PO DAILY 30 Days Vitamin D (Cholecalciferol) 1,000 Unit Tablet 5 Tab PO DAILY 30 Days Abilify* (Aripiprazole) 5 Mg Tablet 1 Tab PO DAILY 30 Days Proventil Nebs* (Albuterol) 2.5 Mg/0.5 Ml Vial.neb 2.5 Mg IH Q6H PRN 30 Days Reported Combivent Respimat Inhal Amity (Albuterol/Ipratropium) 20 Mcg-100 Mcg/Actuation Aer.w.adap 1 Puffs INH Q6H Clonidine HCl 0.1 Mg Tablet 1 Tab PO BID 30 Days Gabapentin 600 Mg Tablet 1 Tab PO BID 30 Days Lasix* (Furosemide) 20 Mg Tablet 1 Tab PO DAILY 30 Days Past Medical History Past Medical History COPD using 4 L of oxygen at home. Diabetes mellitus currently in the on insulin. Obstructive sleep apnea, she has not been on CPAP since the last 2 years Pulmonary embolus and DVT currently on Eliquis. Past Surgical History Surgical History Comment Cholecystectomy, tonsillectomy Past Social History Social History Comment Quit smoking two weeks ago, previously smoked about one pack a day, smoked for about 20 years Quit drinking alcohol 10 years ago Uses a methamphetamine on a regular basis, usually eats it She lives at home with her girlfriend Smoking: Greater than 1 pack/day Alcohol Use: Sober Drug Use: Methamphetamine Lives with: Other Lives In: Home Occupation: unemployed ROS Constitutional: Denies: no symptoms reported, see HPI, chills, diaphoresis, fever, malaise, weakness, other Eyes: Denies: no symptoms reported, see HPI, pain, discharge, blurred vision, double vision, itching, photophobia, redness, tearing, other ENT: Denies: no symptoms reported, see HPI, ear pain, ear bleeding, ear discharge, hearing loss, ear ringing, nose pain, nose bleeding, nose congestion, nose discharge, throat pain, throat swelling, voice change, mouth pain, mouth bleeding, mouth swelling, other Respiratory: Reports: shortness of breath, SOB with exertion, SOB at rest; Denies: cough, orthopnea, stridor Cardiovascular: Denies: no symptoms reported, see HPI, chest pain, left arm pain, diaphoresis, lightheadedness, syncope, edema, palpitations, irregular heart rate, other Gastrointestinal: Denies: no symptoms reported, see HPI, abdomen distended, abdominal pain, nausea, vomiting, diarrhea, constipated, melena, hematemesis, hematochezia, rectal bleeding, rectal pain, dysphagia, poor appetite, poor fluid intake, other Genitourinary: Denies: no symptoms reported, see HPI, burning, discharge, dysuria, frequency, flank pain, hematuria, incontinence, pain, decreased urine output, urgency, other Neurological: Denies: no symptoms reported, see HPI, speech problem, headache, dizziness, fainting, tingling, left sided numbness, right sided numbness, left sided weakness, right sided weakness, problems walking, unable to move lower ext, unable to move upper ext, petit mal seizures, tonic-clonic seizures, cognitive dysfunction, other Musculoskeletal: Denies: no symptoms reported, see HPI, pain, swelling, back pain, gout, joint pain, joint swelling, muscle pain, muscle swelling, muscle stiffness, neck pain, other Exam Vitals: Vital Signs Date Time Temp Pulse Resp B/P (MAP) Pulse Ox O2 Delivery O2 Flow Rate FiO2 10/02/24 21:54 110 25 136/80 (98) 94 10/02/24 19:33 50 10/02/24 18:20 99.3 8.0 10/02/24 15:58 BiPAP+ General: General: Alert, oriented, in mild respiratory distress HEENT: Conjunctive are pink, sclerae clear, no icterus, pupil is equal in both sides. Neck: Supple, no JVD, no lymphadenopathy and thyromegaly. Chest: Equal air entry on both lungs, diffuse bilateral wheezing. Cardiovascular: S1-S2 regular sinus rhythm and, regular rate, no gallops, no rubs, no murmurs Abdomen:. Bowel sounds present on auscultation, soft, nontender, no guarding, no rigidity Extremities: No obvious deformities, 2+ pitting edema bilaterally, capillary refill intact, peripheral pulsations are intact on both sides Central Nervous System: No focal neurological deficits, no motor or sensory weakness in all 4 extremities, could move all 4 extremities. Musculoskeletal: No joint swelling, deformities, inflammations, and no scoliosis and back tenderness Skin: Warm and dry Diagnostic Data Last Recorded Lab Results: 10/02/24 1352 10/02/24 1352 Diagnostic Data: Laboratory Tests Test 10/02/24 18:50 Prothrombin Time 11.8 SECONDS (9.0-12.0) INR International Normalized Ratio 1.2 INR Activated Partial Thromboplast Time 35 SECONDS (22-32) H Coagulation Comments Advance Care Planning Advanced Care plannin - 30 Minutes (I spent 17 minutes in discussing various resuscitative measures, the patient chose to be full code.) Additional Plan Assessment This is a 44-year-old female with history of methamphetamine uses, chronic smoking, COPD, on 4 L of oxygen at home, recurrent pulmonary embolism, DVT, obstructive sleep apnea, insulin-dependent diabetes mellitus came to the ER with a chief complaint of exacerbation of shortness of breadth. CTA showed acute on chronic pulmonary embolism. Patient is being admitted for pulmonary embolism and COPD exacerbation. Acute and chronic hypoxemic respiratory failure: Acute on chronic Pulmonary embolism, Wells score-6 Acute exacerbation of COPD: The patient is currently on BiPAP. Troponins normal, EKG showed sinus tachycardia Chest x-ray showed pulmonary congestion WBC count, procalcitonin, lactic normal CTA showed new left lower lobe segmental pulmonary embolism. Pulmonary embolism in the right lower lobe segmental and subsegmental unchanged. Vascular ultrasound on 08/15/2024 showed acute on chronic DVT in left common femoral and popliteal veins. No clinical signs of DVT in right or left lower extremity. Started on heparin drip Methylprednisolone 125 mg given in the ER, started on 40 mg IV b.i.d. DuoNebs q.4 p.r.n. and scheduled Cor pulmonale Acute exacerbation of CHF with preserved ejection fraction ProBNP 1660 Echo on 08/29 showed ejection fraction of 60%, RVSP 77 mmHg, mild to moderate tricuspid regurgitation Chest x-ray shows pulmonary congestion One dose of Lasix 80 mg has been given in the ER Started on Lasix 40 mg b.i.d. Strict input and output monitoring Heart healthy diet. Uncontrolled diabetes mellitus: Hemoglobin A1c on 08/14/2024 7.3. Hyperglycemia/hypoglycemia protocol in place. Lantus 20 units HS. Medium dose sliding scale short-acting insulin. Hypokalemia Potassium 3.2, Started on potassium replacement protocol. Substance use disorder: The patient endorses that she has been using methamphetamines. Urine toxicology positive for amphetamines and cannabinoids medical services manager consulted. History of hypertension Continued patient's home medication clonidine 0.1 mg b.i.d. History of schizophrenia: We will continue her home medication risperidone, aripiprazole, fluoxetine History of obstructive sleep apnea Patient is not using CPAP at home Currently on BiPAP Code status: Full code DVT prophylaxis: Heparin Line/tube: PIV Nutrition: Heart healthy diet PT: Ordered Prognosis: Guarded Disposition: The patient will be admitted to PCU. Artis Parish M.D PGY1 Addendum I personally reviewed the chart, labs and imaging and reviewed the patient with the team. I agree with the assessment and plan as documented by the resident. Patient was seen through remote audio-visual assessment through HIPAA compliance setup. Date of Service: October 02, 2024 Billing Provider: RUFINA GRIMM MD, PRAVAHIKA, [facility] October 02, 2024 22:42 RUFINA GRIMM MD October 03, 2024 02:24
[2024-10-02] MEDS: potassium Cl 20 mEq SR tablet PO PRN (22:55)
[2024-10-02] MEDS: ipratropium/albuterol 3ml nebule NEB SCH (23:45)
[2024-10-03] VITALS (21 sets, daily range): BP systolic 93–112; BP diastolic 57–66; PULSE 86–103; RESP 16–30; TEMP 96.9–97.6; O2SAT 88–98
[2024-10-03 02:32] LABS: BASOPHILS # (AUTO) 0.1 X10'3 (0-0.2); BASOPHILS % (AUTO) 0.7 % (0-1); EOSINOPHILS % (AUTO) 0.4 % (0-6); HEMATOCRIT 40.9 % (35.0-45.0); HEMOGLOBIN 13.6 g/dl (12.0-16.0); LYMPHOCYTES # (AUTO) 0.6 X10'3 (1.1-4.8); LYMPHOCYTES % (AUTO) 5.7 % (21-51); MEAN CORPUSCULAR HEMOGLOBIN 28.5 PG (27.0-31.0); MEAN CORPUSCULAR HGB CONC 33.2 g/dL (33.0-36.5); MEAN CORPUSCULAR VOLUME 85.6 FL (78-98); MEAN PLATELET VOLUME 9.3 FL (7.4-10.4); MONOCYTES # (AUTO) 0.3 X10'3 (0-0.9); NEUTROPHILS # (AUTO) 10.3 X10'3 (1.8-7.7); NEUTROPHILS % (AUTO) 90.2 % (42-75); PLATELET COUNT 259 X10'3 (140-440); RED BLOOD COUNT 4.78 X10'6 (4.20-5.60); RED CELL DISTRIBUTION WIDTH 16.4 % (11.5-14.5); WHITE BLOOD COUNT 11.4 X10'3 (4.5-11.0)
[2024-10-03 02:43] LABS: ALBUMIN 3.1 G/DL (3.4-5.0); ANION GAP 8 (8-16); BLOOD UREA NITROGEN 13 MG/DL (7-18); BUN/CREATININE RATIO 15.9 (10.0-20.0); CALCIUM 8.8 MG/DL (8.5-10.1); CHLORIDE 102 MMOL/L (99-107); CREATININE 0.82 MG/DL (0.40-0.90); GLUCOSE 271 MG/DL (70-104); POTASSIUM 3.7 MMOL/L (3.5-5.1); SODIUM 137 MMOL/L (135-145); TOTAL CARBON DIOXIDE 26.9 MMOL/L (24-32); eCRCL 69 ML/MIN; eGFR 76 ML/MIN
[2024-10-03] MEDS: INSULIN LISPRO 100 UNIT/ML INSULN.PEN MULTI-DOSE SQ SCH ×3 (07:30→17:30)
[2024-10-03] MEDS: K and/or MAG REPLACEMENT MC SCH (08:00)
[2024-10-03] MEDS: docusate sod 100mg capsule PO SCH (08:00)
[2024-10-03] MEDS: furosemide 10 MG/1 ML 10ml inj IV SCH (08:32)
[2024-10-03] MEDS: methylPREDNISolone sod succ/PF 40mg inj. IV SCH (08:32)
[2024-10-03] MEDS: cloNIDine 0.1 mg tablet PO SCH (08:32)
[2024-10-03] MEDS: cholecalciferol (vitamin D3) 1,000 unit (25mcg) tablet PO SCH (08:33)
[2024-10-03] MEDS: MESSAGE TO NURSING IV ONE ×2 (09:47→15:49)
[2024-10-03] MEDS: FLUoxetine 20mg capsule PO SCH (09:47)
[2024-10-03] MEDS: aripiprazole 5mg tablet PO SCH (09:47)
[2024-10-03] MEDS: gabapentin 300mg capsule PO SCH (09:48)
--- NOTE | 2024-10-03 13:56 | PROGRESS NOTE- Residence ---
Progress Note - Resident Providers to CC Resident Creating Document: KILO OBANDO, RES ~ Central Line/PICC still needed: No Hillman-Non Protocol Hillman Indications Met/Not Met: F/C Indications Not Met Antibiotic Timeout Antibiotic Ordered?: No MRSA Education MRSA Education Provided to pt: No Subjective Patient seen at bedside, she had the BiPAP on but was awake and alert, answers appropriately. She is on the Eliquis 5 mg b.i.d. from a prior pulmonary embolism last year but forgets to take her medications. Denies any other acute complaints, reports improvement in shortness of breath with the BiPAP and medications. Mother at bedside, reported that the patient has been in and out of the hospitals about 5 times with similar complaints. Her prior pulmonary embolism was also unprovoked by the patient has not been evaluated outpatient as per her memory by her PCP at [facility]. Denies trial of pregnancies during her lifetime. Only significant reported symptom is prolonged menstrual cycle but otherwise has no other problems with bleeding or clotting after trauma/injury. Objective Vital Signs Date Time Temp Pulse Resp B/P (MAP) Pulse Ox O2 Delivery O2 Flow Rate FiO2 10/03/24 12:30 97 30 88 50 23 10/03/24 11:38 Venturi Mask 15.0 Bi-pap 10/03/24 11:21 130/80 (97) 10/02/24 18:20 99.3 Result Diagram: 10/03/24 0159 10/03/24 0159 General: Awake and Alert, no acute distress. Morbid obesity HEENT: Conjunctiva pink, Sclera clear, Mucus Membranes moist. Resp: Unlabored. Lungs clear to auscultation bilaterally. Heart: Sinus tachycardia, normal S1 and S2 without murmur, rub or gallop. Abdomen: Obese, Soft and non tender no organomegaly. Bowel sounds present Extremities: Left lower limb greater than the right lower limb (chronic). No pitting edema, cyanosis. Bilateral lower extremities warm. Skin: Warm and Dry. No injection track betancur noted. Coagulation Studies Laboratory Tests Test 10/02/24 18:50 10/03/24 07:40 Prothrombin Time 11.8 SECONDS (9.0-12.0) INR International Normalized Ratio 1.2 INR Activated Partial Thromboplast Time 35 SECONDS (22-32) H APTT (Heparin Protocol) 85 SECONDS (45-75) H Coagulation Comments Counseling Services Smoking & Tobacco Cessation: 3-10 Minutes Assessment Assessment 44-year-old female patient with a past medical history of right-sided heart failure with preserved ejection fraction, severe pulmonary arterial hypertension, COPD, recurrent DVTs/PEs, noncompliance to medications and methamphetamine abuse disorder presents to the hospital with the complaints of increasing shortness of breath that had occurred suddenly yesterday. The patient was in the hospital on 09/09/2024 and left AMA on 09/28, she was treated for an exacerbation of COPD and multilobar bilateral pneumonia during that visit. In the ER, the patient was hypoxemic requiring a non-rebreather mask. CTA chest was performed which revealed no pulmonary saddle embolus but presence of a new left-sided pulmonary embolism. Due to the presence of wheezing, she was started on duo nebs and worsening hypoxemia, on BiPAP in the ER itself. She improved with BiPAP and hence, she was admitted to the floor. Plan Plan 1. Acute on chronic hypoxemic respiratory failure: Secondary to new left lobar subsegmental pulmonary embolism; Wells score- 6 Acute on chronic exacerbation of COPD 10/02/2024: Patient on BiPAP, troponins and EKG reviewed- normal No criteria for SIRS CTA revealed presence of new left lower lobe subsegmental pulmonary embolism and chronic pulmonary embolisms in the right lower lobe segmental and subsegmental that have not changed Started on heparin drip Methylprednisone 125 mg in the ER followed by 40 mg b.i.d. RT eval and treat. Duo nebs q.4 PRN scheduled 10/03/2024: Switch from heparin drip to Xarelto today at 9:00 p.m., spoke with the pharmacist to overlap the doses- Xarelto 15 mg for 21 days followed by 20 mg daily Maintaining well between the BiPAP and non-rebreather; RT managing closely Goal saturations between 88 and 92%. Monitor for AMS, high-risk for worsening respiratory failure Outpatient evaluation for unprovoked DVTs and PEs 2. Unprovoked thromboembolism: History of multiple DVTs and pulmonary embolisms Vascular ultrasound on 08/29 reveals extensive DVT in the left leg extending from common femoral, femoral and popliteal veins Outpatient Eliquis 5 mg b.i.d.; patient usually takes once or forgets to take it Switch from heparin to Xarelto to maintain increased compliance due to once daily dosing Continue to monitor for hemodynamic stability 3. Heart failure with preserved ejection fraction: Elevated RVSP- 77 mmHg Cor pulmonale Possibly also secondary to MILDRED induced pulmonary hypertension 10/02/2024: ProBNP 1660 Echo on 08/29 showed ejection fraction of 60%, RVSP 77 mmHg, mild to moderate tricuspid regurgitation Chest x-ray shows pulmonary congestion One dose of Lasix 80 mg has been given in the ER Started on Lasix 40 mg b.i.d. Strict input and output monitoring Heart healthy diet 10/03/2024: Continue the same management Consulted Dr. Phan for pulmonary hypertension- recommends outpatient evaluation due to requirement of swans Souleymane catheter and prolonged follow up In view of starting treatment. As the patient is stable hemodynamically at this time, no further management required 4. Abnormal CTA Chest findings: No significant elevation ESR and CRP Sequential CT chest revealed hilar lymphadenopathy bilaterally There is also right upper lobe ground-glass opacity mentioned in the results but on review of images, no apparent ground-glass opacities are visible Consulted Dr. Phan, also does not visualize any ground-glass opacities For hilar lymphadenopathy- differentials could include reactive/malignancy such as lymphoma/lupus/sarcoidosis Calcium within normal limits Likely requires close outpatient follow up with the video editor if the patient continues to maintain compliance 5. Uncontrolled type 2 diabetes mellitus: Insulin-dependent type 2 diabetes HGB A1c 7.3 Continue hyperglycemia/hypoglycemia protocol Lantus 20 units HS, medium dose sliding scale insulin 6. Morbid obesity: On Ozempic at home Reports significant weight loss with GLP-1 7. Substance use disorder: Methamphetamine, nicotine Smokes nicotine and eats methamphetamine As she orally consumes meth, pulmonary hypertension like unlikely to be secondary to the drug abuse assistant guest services manager and substance use navigator consulted 8.History of hypertension Continued patient's home medication clonidine 0.1 mg b.i.d. 9. History of schizophrenia: We will continue her home medication risperidone, aripiprazole, fluoxetine Hypokalemia: POA; resolved Disposition: Patient has been admitted to [facility] multiple times with similar complaints, she was also intubated this one time. Requested records from [facility] in the ER. If the ER will not be able to obtain them, we will have to remind the nurses again to be able to obtain the records. We are switching from heparin drip to Xarelto tonight at 9:00 p.m.. 21 mg Xarelto for the next 21 days has to be sent for discharge. Once patient is stable, she can be discharged back home with no services required. Code status: Full code DVT prophylaxis: Heparin Line/tube: PIV Nutrition: Heart healthy diet PT: Ordered Prognosis: Guarded Date of Service: October 03, 2024 Billing Provider: SG KAUR MD Common Visit Codes: [id number] INP/OBS CARE(HIGH) KILO OBANDO, RES October 03, 2024 13:56 SG KAUR MD October 03, 2024 19:59
--- NOTE | 2024-10-03 19:32 | VASCULAR REPORT ---
EXAM: VASC VL VENOUS HISTORY: Swelling COMPARISON: VASC VL VENOUS on DOS: 08/15/24 TECHNIQUE: Duplex Doppler evaluation of the deep venous systems of both lower extremities from the co mmon femoral veins to the popliteal veins including color Doppler and spectral/pulsed waveform analys is was performed. FINDINGS: RIGHT SIDE: The common femoral vein demonstrates appropriate compressibility and waveform variability. There is compressibility/patency of the great saphenous vein at the proximal thigh. The femoral vein demonstrates appropriate compressibility and waveform variability. The deep femoral vein demonstrates appropriate compressibility and waveform variability. The popliteal vein demonstrates appropriate compressibility and waveform variability. There is normal compressibility at the tibioperoneal trunk. LEFT SIDE: The common femoral vein demonstrates appropriate compressibility and waveform variability. There is compressibility/patency of the great saphenous vein at the proximal thigh. The femoral vein demonstrates residual thrombus in the mid and distal left femoral The deep femoral vein demonstrates appropriate compressibility and waveform variability. The popliteal vein demonstrates appropriate compressibility and waveform variability. There is normal compressibility at the tibioperoneal trunk. IMPRESSION: 1. Residual thrombus in the mid and distal left femoral vein. If clinical concern/symptoms persist or worsen, short-interval follow-up study is suggested.
[2024-10-03] MEDS: rivaroxaban 15mg tablet PO SCH (19:51)
[2024-10-03] MEDS: acetaminophen 325mg tablet PO PRN (19:58)
[2024-10-03] MEDS: risperiDONE 2mg tablet PO SCH (20:00)
[2024-10-04] VITALS (20 sets, daily range): BP systolic 98–117; BP diastolic 54–74; PULSE 84–102; RESP 12–23; TEMP 97.3–98; O2SAT 91–96
[2024-10-04 07:36] LABS: BASOPHILS % (AUTO) 0.2 % (0-1); EOSINOPHILS % (AUTO) 0 % (0-6); HEMATOCRIT 37.4 % (35.0-45.0); HEMOGLOBIN 12.6 g/dl (12.0-16.0); LYMPHOCYTES # (AUTO) 1.1 X10'3 (1.1-4.8); LYMPHOCYTES % (AUTO) 9.8 % (21-51); MEAN CORPUSCULAR HEMOGLOBIN 28.6 PG (27.0-31.0); MEAN CORPUSCULAR HGB CONC 33.7 g/dL (33.0-36.5); MEAN CORPUSCULAR VOLUME 84.9 FL (78-98); MEAN PLATELET VOLUME 8.9 FL (7.4-10.4); MONOCYTES # (AUTO) 0.9 X10'3 (0-0.9); MONOCYTES % (AUTO) 8.5 % (2-12); NEUTROPHILS # (AUTO) 8.8 X10'3 (1.8-7.7); NEUTROPHILS % (AUTO) 81.5 % (42-75); PLATELET COUNT 298 X10'3 (140-440); WHITE BLOOD COUNT 10.8 X10'3 (4.5-11.0)
[2024-10-04 07:51] LABS: ANION GAP 7 (8-16); BLOOD UREA NITROGEN 16 MG/DL (7-18); BUN/CREATININE RATIO 21.6 (10.0-20.0); CALCIUM 8.9 MG/DL (8.5-10.1); CHLORIDE 103 MMOL/L (99-107); CREATININE 0.74 MG/DL (0.40-0.90); GLUCOSE 224 MG/DL (70-104); MAGNESIUM 2.3 MG/DL (1.5-2.4); POTASSIUM 3.8 MMOL/L (3.5-5.1); SODIUM 140 MMOL/L (135-145); TOTAL CARBON DIOXIDE 30.2 MMOL/L (24-32); eCRCL 77 ML/MIN; eGFR 85 ML/MIN
[2024-10-04] MEDS: furosemide 40mg/4ml inj IV SCH (08:07)
--- NOTE | 2024-10-04 16:28 | PROGRESS NOTE- Residence ---
Progress Note - Resident Providers to CC Resident Creating Document: EDVIN SYKES RES ~ Antibiotic Timeout Antibiotic Ordered?: No Subjective Patient seen and examined today. He is on her menstrual period and so has bloody urine. Requiring 4-5 L O2 via nasal cannula. States that she earlier use CPAP but her sleep study about six months back did not show any signs of obstructive sleep apnea. Objective Vital Signs Date Time Temp Pulse Resp B/P (MAP) Pulse Ox O2 Delivery O2 Flow Rate FiO2 10/04/24 11:42 102 22 Nasal Cannula 5.0 40 10/04/24 11:35 92 10/04/24 11:00 97.7 112/74 (87) Result Diagram: 10/04/2435 10/04/24 06 General: Awake and Alert, no acute distress. Morbid obesity HEENT: Conjunctiva pink, Sclera clear, Mucus Membranes moist. Resp: Unlabored. Bilateral mildly decreased breath sounds. Bilateral rhonchi present. No crackles or wheezing. Heart: Sinus tachycardia, normal S1 and S2 without murmur, rub or gallop. Abdomen: Obese, Soft and non tender no organomegaly. Bowel sounds present PSYCH ARNP: No gross sensory or motor deficits Extremities: Left lower limb greater than the right lower limb (chronic). No pitting edema, cyanosis. Bilateral lower extremities warm. Skin: Warm and Dry. No injection track betancur noted. Coagulation Studies Laboratory Tests Test 10/02/24 18:50 10/03/24 23:55 Prothrombin Time 11.8 SECONDS (9.0-12.0) INR International Normalized Ratio 1.2 INR Activated Partial Thromboplast Time 35 SECONDS (22-32) H APTT (Heparin Protocol) 123 SECONDS (45-75) *H Coagulation Comments Assessment Assessment 44-year-old female patient with a past medical history of right-sided heart failure with preserved ejection fraction, severe pulmonary arterial hypertension, COPD, recurrent DVTs/PEs, noncompliance to medications and methamphetamine abuse disorder presents to the hospital with the complaints of increasing shortness of breath that had occurred suddenly yesterday. The patient was in the hospital on 09/09/2024 and left AMA on 09/28, she was treated for an exacerbation of COPD and multilobar bilateral pneumonia during that visit. In the ER, the patient was hypoxemic requiring a non-rebreather mask. CTA chest was performed which revealed no pulmonary saddle embolus but presence of a new left-sided pulmonary embolism. Due to the presence of wheezing, she was started on duo nebs and worsening hypoxemia, on BiPAP in the ER itself. She improved with BiPAP and hence, she was admitted to the floor. Plan Plan 1. Acute on chronic hypoxemic respiratory failure: Secondary to new left lobar subsegmental pulmonary embolism; Wells score- 6 Acute on chronic exacerbation of COPD 10/02/2024: Patient on BiPAP, troponins and EKG reviewed- normal No criteria for SIRS CTA revealed presence of new left lower lobe subsegmental pulmonary embolism and chronic pulmonary embolisms in the right lower lobe segmental and subsegmental that have not changed Started on heparin drip Methylprednisone 125 mg in the ER followed by 40 mg b.i.d. RT eval and treat. Duo nebs q.4 PRN scheduled 10/03/2024: Switch from heparin drip to Xarelto today at 9:00 p.m., spoke with the pharmacist to overlap the doses- Xarelto 15 mg for 21 days followed by 20 mg daily Maintaining well between the BiPAP and non-rebreather; RT managing closely Goal saturations between 88 and 92%. Monitor for AMS, high-risk for worsening respiratory failure Outpatient evaluation for unprovoked DVTs and PEs 10/04/2024: Continue Xarelto 15 mg p.o. b.i.d. for 21 days followed by 20 mg p.o. daily Continue oxygen supplementation via nasal cannula. Use BiPAP as needed. OT managing closely Goal saturations between 88 and 92%. Monitor for AMS, high-risk for worsening respiratory failure Outpatient evaluation for unprovoked DVTs and PEs 2. Unprovoked thromboembolism: History of multiple DVTs and pulmonary embolisms Vascular ultrasound on 08/29 reveals extensive DVT in the left leg extending from common femoral, femoral and popliteal veins Outpatient Eliquis 5 mg b.i.d.; patient usually takes once or forgets to take it Switch from heparin to Xarelto to maintain increased compliance due to once daily dosing Continue to monitor for hemodynamic stability 3. Heart failure with preserved ejection fraction: Elevated RVSP- 77 mmHg Cor pulmonale Possibly also secondary to MILDRED induced pulmonary hypertension 10/02/2024: ProBNP 1660 Echo on 08/29 showed ejection fraction of 60%, RVSP 77 mmHg, mild to moderate tricuspid regurgitation Chest x-ray shows pulmonary congestion One dose of Lasix 80 mg has been given in the ER Started on Lasix 40 mg b.i.d. Strict input and output monitoring Heart healthy diet 10/03/2024: Continue the same management Consulted Dr. Phan for pulmonary hypertension- recommends outpatient evaluation due to requirement of swans Souleymane catheter and prolonged follow up In view of starting treatment. As the patient is stable hemodynamically at this time, no further management required 10/04/24: Continue Lasix 40 mg IV b.i.d. 4. Abnormal CTA Chest findings: No significant elevation ESR and CRP Sequential CT chest revealed hilar lymphadenopathy bilaterally There is also right upper lobe ground-glass opacity mentioned in the results but on review of images, no apparent ground-glass opacities are visible Consulted Dr. Phan, also does not visualize any ground-glass opacities For hilar lymphadenopathy- differentials could include reactive/malignancy such as lymphoma/lupus/sarcoidosis Calcium within normal limits Likely requires close outpatient follow up with the electronic data processing auditor if the patient continues to maintain compliance 5. Uncontrolled type 2 diabetes mellitus: Insulin-dependent type 2 diabetes HGB A1c 7.3 Continue hyperglycemia/hypoglycemia protocol 10/04/2024: Increased Lantus to 22 units HS from 20 units to maintain blood glucose level between 140 to 180 mg/dL, medium dose sliding scale insulin 6. Morbid obesity: On Ozempic at home Reports significant weight loss with GLP-1 7. Substance use disorder: Methamphetamine, nicotine Smokes nicotine and eats methamphetamine As she orally consumes meth, pulmonary hypertension like unlikely to be secondary to the drug abuse environmental field services technician and substance use navigator consulted 8.History of hypertension Continued patient's home medication clonidine 0.1 mg b.i.d. 9. History of schizophrenia: We will continue her home medication risperidone, aripiprazole, fluoxetine Hypokalemia: POA; resolved Disposition: Patient has been admitted to [facility] multiple times with similar complaints, she was also intubated this one time. Requested records from [facility] in the ER. If the ER will not be able to obtain them, we will have to remind the nurses again to be able to obtain the records. Once patient is stable, she can be discharged back home with no services required. Requires outpatient evaluation for unprovoked DVTs and PEs. Follow up with the electronic data processing auditor in [place] Code status: Full code DVT prophylaxis: Xarelto Line/tube: PIV Nutrition: Heart healthy diet PT: Ordered Prognosis: Guarded Edvin Sykes MD Internal Medicine Resident, PGY 2 Date of Service: October 04, 2024 Billing Provider: SG KAUR MD Common Visit Codes: [id number] INP/OBS CARE(HIGH) EDVIN SYKES RES October 04, 2024 16:28 SG KAUR MD October 04, 2024 19:29
[2024-10-04] MEDS: insulin glargine (Lantus) pen - multi-dose SQ SCH (21:30)
[2024-10-05] VITALS (11 sets, daily range): BP systolic 101–108; BP diastolic 54–75; PULSE 74–97; RESP 14–21; TEMP 96.3–98.6; O2SAT 92–98
[2024-10-05 08:17] LABS: BASOPHILS % (AUTO) 0.1 % (0-1); EOSINOPHILS % (AUTO) 0 % (0-6); HEMATOCRIT 39.7 % (35.0-45.0); LYMPHOCYTES # (AUTO) 1.5 X10'3 (1.1-4.8); LYMPHOCYTES % (AUTO) 12.8 % (21-51); MEAN CORPUSCULAR HGB CONC 32.9 g/dL (33.0-36.5); MEAN CORPUSCULAR VOLUME 85.3 FL (78-98); MEAN PLATELET VOLUME 8.6 FL (7.4-10.4); MONOCYTES # (AUTO) 0.8 X10'3 (0-0.9); MONOCYTES % (AUTO) 7.3 % (2-12); NEUTROPHILS # (AUTO) 9.3 X10'3 (1.8-7.7); NEUTROPHILS % (AUTO) 79.8 % (42-75); PLATELET COUNT 294 X10'3 (140-440); RED BLOOD COUNT 4.66 X10'6 (4.20-5.60); RED CELL DISTRIBUTION WIDTH 16.5 % (11.5-14.5); WHITE BLOOD COUNT 11.7 X10'3 (4.5-11.0)
[2024-10-05 08:30] LABS: ALBUMIN 3.1 G/DL (3.4-5.0); ANION GAP 6 (8-16); BLOOD UREA NITROGEN 25 MG/DL (7-18); BUN/CREATININE RATIO 31.3 (10.0-20.0); CALCIUM 9.2 MG/DL (8.5-10.1); CHLORIDE 101 MMOL/L (99-107); GLUCOSE 246 MG/DL (70-104); MAGNESIUM 2.3 MG/DL (1.5-2.4); POTASSIUM 4.2 MMOL/L (3.5-5.1); SODIUM 137 MMOL/L (135-145); eCRCL 71 ML/MIN; eGFR 78 ML/MIN
[2024-10-05] MEDS ORDERED: FURO-150 PO (13:09)
[2024-10-05] MEDS ORDERED: PRED10TA23 PO (13:09)
[2024-10-05] MEDS ORDERED: RIVA15TA PO (13:19)
== END 2024-10-05 15:20 | disposition home or self-care (01) | DRG 133 ==
LOC: ER 13:29 → ED HOLD 20:17 → PCU 3S 10-03 17:01
PROVIDERS: ADMIT Internal Medicine Sleep Medicine; ATTEND Internal Medicine
PROC: B32T1ZZ Computerized Tomography (CT Scan) of Left Pulmonary Artery using Low Osmolar Contrast (ICD-10-PCS; principal; 2024-10-02)
PROC: B3201ZZ Computerized Tomography (CT Scan) of Thoracic Aorta using Low Osmolar Contrast (ICD-10-PCS; 2024-10-02)
PROC: B32S1ZZ Computerized Tomography (CT Scan) of Right Pulmonary Artery using Low Osmolar Contrast (ICD-10-PCS; 2024-10-02)
PROC: 5A09357 Assistance with Respiratory Ventilation, Less than 24 Consecutive Hours, Continuous Positive Airway Pressure (ICD-10-PCS; 2024-10-02)
PROC: 5A09357 Assistance with Respiratory Ventilation, Less than 24 Consecutive Hours, Continuous Positive Airway Pressure (ICD-10-PCS; 2024-10-03)
PROC: 5A09357 Assistance with Respiratory Ventilation, Less than 24 Consecutive Hours, Continuous Positive Airway Pressure (ICD-10-PCS; 2024-10-04)
PROC: 5A09357 Assistance with Respiratory Ventilation, Less than 24 Consecutive Hours, Continuous Positive Airway Pressure (ICD-10-PCS; 2024-10-05)
DX: J96.21 Acute and chronic respiratory failure with hypoxia (principal); I26.99 Other pulmonary embolism without acute cor pulmonale; I50.33 Acute on chronic diastolic (congestive) heart failure; I82.412 Acute embolism and thrombosis of left femoral vein; I11.0 Hypertensive heart disease with heart failure; J44.1 Chronic obstructive pulmonary disease with (acute) exacerbation; E11.9 Type 2 diabetes mellitus without complications; G47.33 Obstructive sleep apnea (adult) (pediatric); I36.1 Nonrheumatic tricuspid (valve) insufficiency; E87.6 Hypokalemia; F20.9 Schizophrenia, unspecified; I27.21 Secondary pulmonary arterial hypertension; E66.01 Morbid (severe) obesity due to excess calories; Z87.891 Personal history of nicotine dependence; Z56.0 Unemployment, unspecified; Z88.2 Allergy status to sulfonamides; Z88.8 Allergy status to other drugs, medicaments and biological substances; Z90.49 Acquired absence of other specified parts of digestive tract; Z91.148 Patient's other noncompliance with medication regimen for other reason; Z68.42 Body mass index [BMI] 45.0-49.9, adult
CPT/HCPCS: 36415; 36600; 71045; 71275; 80048; 80305; 81001; 82803; 82948; 83605; 83735; 83880; 84145; 84484; 85018; 85025; 85610; 85651; 85730; 86140; 87040; 87081; 93005; 93970; 94640; 94644; 94660; 94760; 96374; 96375; 99291; 99292; A4615; A4620; A7015; G0378; J1644; J1815; J1938; J1940; J2919; J7030; Q9967

== ENCOUNTER 2024-11-13 22:58 | Inpatient (IN) | payer MEDICAID ==
[~2024-11-13] VITALS: Ht 157.5 cm; Wt 120.0 kg
[~2024-11-13 22:58] MED LIST changes: -APIX5TAB3 PO; -BUDE0.5A11 NEB; -BUDE180A5 INH; -FURO-149 PO; +FURO-150 PO; +IPRA4AER INH; +RIVA15TA PO; -TIOT4MIS3 INH
[2024-11-14] VITALS (12 sets, daily range): BP systolic 91–122; BP diastolic 55–71; PULSE 84–99; RESP 16–18; TEMP 97.6–98.9; O2SAT 93–96
[2024-11-14 00:21] LABS: MEAN PLATELET VOLUME 8.1 FL (7.4-10.4); RED CELL DISTRIBUTION WIDTH 15.9 % (11.5-14.5)
--- NOTE | 2024-11-14 00:28 | Physician Documentation ---
History of Present Illness ~ Chief Complaint: Extremity Swelling Stated Complaint: BUMP ON LEG Time Seen by MD: 00:19 Primary Medical Doctor: [facility] Mode of Arrival: POV HPI Patient presents to the emergency room with left lower extremity swelling erythema and drainage. Patient has history of DVTs in his taking Xarelto. Reports compliance. She denies increased oxygen demand or chest pain. Tetanus witin 5 years: Yes Medication Reconciliation Allergies: Coded Allergies: Sulfa (Sulfonamide Antibiotics) (Verified Allergy, Severe, SWELLING, 11/13/24) Scheduled Aripiprazole* (Abilify*), 1 TAB PO DAILY Atorvastatin Calcium* (Lipitor*), 1 TABLET PO HS, (Reported) Budesonide (Pulmicort Flexhaler), 2 PUFFS INH Q12H, (Reported) Cholecalciferol (Vitamin D3) (Vitamin D3), 1 CAP PO Q7D, (Reported) Clonidine HCl (Clonidine HCl), 1 TAB PO BID, (Reported) Clotrimazole/Betamet Diprop Cream* (Lotrisone Cream*), 1 APPLIC TOP Q12H, (Reported) Doxycycline Hyclate (Doxycycline Hyclate), 100 MG PO BID Fluoxetine Hcl* (Prozac*), 3 CAP PO DAILY Fluticasone Propionate (Flonase Allergy Relief), 2 SPRAYS BOTHNARES DAILY Fluticasone/Umeclidin/Vilanter (Trelegy Ellipta 100-62.5-25), 1 PUFFS INH DAILY, (Reported) Furosemide (Lasix), 20 MG PO DAILY Gabapentin (Gabapentin), 1 TAB PO BID, (Reported) Ipratropium/Albuterol Sulfate (Combivent Respimat Inhal [place]), 1 PUFFS INH Q6H, (Reported) Lamotrigine (Lamotrigine), 1 TAB PO DAILY, (Reported) Metformin Hcl* (Metformin ER*), 1 TAB PO DAILY, (Reported) Potassium Chloride* (K-Dur*), 1 TAB PO DAILY Risperidone (Risperidone), 1 TAB PO HS Rivaroxaban (Xarelto), 20 MG PO QDD Semaglutide (Ozempic), 2 MG SUBCUT Q7D Scheduled PRN Acetaminophen (Tylenol Extra Strength), 2 TAB PO Q6H PRN PRN for pain or fever, (Reported) Albuterol Sulfate Nebs* (Proventil Nebs*), 2.5 MG IH Q6H PRN for SOB or wheezing Discontinued Medications Cholecalciferol (Vitamin D), 5 TAB PO DAILY Rivaroxaban (Xarelto), 15 MG PO Q12H Torsemide (Torsemide), 1 TAB PO BID, (Reported) Past Medical History Past Medical History: Diabetes Past Surgical History: cholecystectomy Last Menstrual Period: Oct 30, 2024 Alcohol Use: Sober Drug Use: methamphetamine Lives with: Other Lives In: Home Occupation: unemployed Review of Systems ROS All review of systems negative except as per HPI Physical Exam Vital Signs: Temperature: 97.7, Heart Rate: 89, Respiratory Rate: 16, BP: 157/83, Pulse Oximetry: 97, Weight: 120.000 Oxygen Flow Rate: 5.0 Physical Exam General: Patient is awake, alert, oriented x4 in no acute distress Head: Normocephalic and atraumatic. Eyes: Conjunctival normal. EOMI. PERRL. ENT: Mucous membranes moist. Neck: Supple, trachea is midline. Chest: Clear to auscultation bilaterally without rales, rhonchi, or wheezes. There is no accessory muscle use or retractions. On nasal cannula at respiratory baseline Cardiac: RRR without murmurs, gallops, or rubs. Extremities: Erythema and swelling to left knowles and calf suspicious for cellulitis. Yellow crusting drainage. Progress Results/Orders Results/Orders Orders - JUDSON LIANG MD Vl Venous (11/14/24 00:29) Page Hospitalist (11/14/24 00:41) Fill Out Med Reconciliation (11/14/24 00:41) Potassium Cl 40meq/1/2ns 520ml ([place] (11/14/24 01:03) Completed Orders - JUDSON LIANG MD Cbc/Diff (11/13/24 23:51) BMP (11/13/24 23:51) D-Dimer (11/13/24 23:51) Cephalexin Capsule (Keflex Capsule) (11/14/24 00:30) Vl Venous (11/14/24 00:29) Electrocardiogram (11/14/24 ) Man Diff (11/14/24 00:14) Magnesium Sulf-Water 2g/50ml (Magnesium (11/14/24 00:40) Potassium Cl 40meq/1/2ns 520ml ([place] (11/14/24 04:00) Potassium Cl Sr Tablet (K-Dur Tablet) (11/14/24 00:40) Hgb A1c (11/14/24 00:14) MG (11/14/24 00:14) PBNP (11/14/24 00:14) Laboratory Tests Test 11/14/24 00:14 White Blood Count 8.6 Red Blood Count 4.23 Hemoglobin 12.1 Hematocrit 35.4 Mean Corpuscular Volume 83.6 Mean Corpuscular Hemoglobin 28.5 Mean Corpuscular Hemoglobin Concent 34.0 Red Cell Distribution Width 15.9 H Platelet Count 308 Mean Platelet Volume 8.1 Neutrophils (%) (Auto) 62.9 Lymphocytes (%) (Auto) 17.8 L Monocytes (%) (Auto) 12.0 Eosinophils (%) (Auto) 6.2 H Basophils (%) (Auto) 1.1 H Neutrophils # (Auto) 5.4 Lymphocytes # (Auto) 1.5 Monocytes # (Auto) 1.0 H Eosinophils # (Auto) 0.5 Basophils # (Auto) 0.1 CBC Comment Differential Total Cells Counted 100 Neutrophils % (Manual) 52 Band Neutrophils % 12 H Lymphocytes % (Manual) 22 Monocytes % (Manual) 11 Eosinophils % (Manual) 3 Toxic Vacuolation 1+ Platelet Estimate Normal Red Blood Cell Morphology Normal Basophilic Stippling D-Dimer 0.22 D-Dimer Comment Sodium Level 139 Potassium Level 2.3 *L Chloride Level 97 L Carbon Dioxide Level 35.1 H Anion Gap 7 L Blood Urea Nitrogen 11 Creatinine 0.81 Estimated GFR/1.73 m2 77 BUN/Creatinine Ratio 13.6 Glucose Level 218 H Hemoglobin A1c 8.9 H Calcium Level 8.2 L Magnesium Level 1.5 Pro-B-Type Natriuretic Peptide 679 H Albumin 3.0 L Chemistry Comments EKG/XRAY/CT/US/VASC/MRI EKG : Additional Comment EKG interpreted by myself shows time of 0048, rate 90, sinus rhythm, right axis deviation, no ST changes Medical Decision Making Findings Patient presented to the emergency room with concerns of her left lower extremity. Differentials include but are not limited to cellulitis, worsening DVT, lymphedema, sepsis therefore emergent labs and imaging indicated. Patient has cellulitis and antibiotics has been initiated. Of concern is patient emergently low potassium. Patient's potassium is low enough to where he had not feel she would do well on outpatient basis and we will admit Departure Admitted to Inpatient Unit: yes, to hospitalist Impression: Primary Impression: Hypokalemia Additional Impression: Cellulitis Condition: Guarded Referrals: NO PRIMARY CARE PROVIDER (PCP) Prescriptions Doxycycline Hyclate (Doxycycline Hyclate) 100 Mg Tablet.dr 100 MG PO BID for 7 Days, #14 TAB Prov: DEMETRIUS MEDINA MD 11/16/24 Potassium Chloride* (K-Dur*) 20 Meq Tab.prt.sr 1 TAB PO DAILY for 30 Days, #30 TAB Prov: DEMETRIUS MEIDNA MD 11/16/24 Rivaroxaban (Xarelto) 20 Mg Tablet 20 MG PO QDD for 30 Days, #30 TAB Prov: DEMETRIUS MEDINA MD 11/16/24 Furosemide (LASIX) 20 Mg Tablet 20 MG PO DAILY for 30 Days, #30 TAB Prov: DEMETRIUS MEDINA MD 11/16/24 Signature Scribe Signature: No scribe Attestation: The note accurately reflects work and decisions made by me.Judson Liang MD 11/14/24 00:55 JUDSON LIANG MD Nov 14, 2024 00:28
[2024-11-14 00:31] LABS: CREATININE 0.81 MG/DL (0.40-0.90); TOTAL CARBON DIOXIDE 35.1 MMOL/L (24-32); eCRCL 70 ML/MIN; eGFR 77 ML/MIN
[2024-11-14 00:42] LABS: BANDS% (MANUAL) 12 % (0-10); EOSINOPHILS % (MANUAL) 3 % (0-6); LYMPHOCYTES % (MANUAL) 22 % (21-51); MONOCYTES % (MANUAL) 11 % (2-12); NEUTROPHILS % (MANUAL) 52 % (42-75); PLATELET ESTIMATE NORMAL
--- NOTE | 2024-11-14 00:50 | ELECTROCARDIOGRAPH REPORT ---
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
[2024-11-14] MEDS: potassium Cl 20 mEq SR tablet PO ONE (01:02)
[2024-11-14] MEDS: magnesium sulf-water 2g/50mL 50 ML IV ONE (01:04)
[2024-11-14] MEDS: potassium Cl 40MEQ/1/2NS 520ml 520 ML IV SCH (01:31)
[2024-11-14] MEDS: potassium Cl 40MEQ/1/2NS 520ml 520 ML IV ONE (01:33)
[2024-11-14] MEDS ORDERED: ondansetron/PF 4mg/2ml inj IV PRN (02:10)
[2024-11-14] MEDS ORDERED: potassium Cl 40MEQ/1/2NS 520ml 520 ML IV PRN (02:10)
[2024-11-14] MEDS ORDERED: magnesium sulf-water 2g/50mL 50 ML IV PRN (02:10)
[2024-11-14] MEDS ORDERED: HYDROcodone/acetaminophen 10/325mg tab PO PRN (02:10)
[2024-11-14] MEDS ORDERED: magnesium sulf-water 4G/100mL 100 ML IV PRN (02:10)
[2024-11-14] MEDS ORDERED: magnesium Cl slow-release 64mg tablet PO PRN (02:10)
[2024-11-14] MEDS ORDERED: HYDROcodone/acetaminophen 5mg/325mg tablet PO PRN (02:10)
[2024-11-14] MEDS ORDERED: mag hydrox/Alum hydrox/simeth 30ml oral suspension PO PRN (02:10)
[2024-11-14] MEDS ORDERED: potassium Cl 20 mEq SR tablet PO PRN (02:10)
[2024-11-14] MEDS ORDERED: DEXTROSE 15 GM of carb/4 tabs (each vial/BOTTLE has 4 tablets) PO PRN ×2 (02:40)
[2024-11-14] MEDS ORDERED: dextrose 50%-water 50ml dispensing syringe IV PRN ×2 (02:40)
[2024-11-14] MEDS ORDERED: glucagon, human recombinant 1mg kit SUBCUT PRN (02:40)
--- NOTE | 2024-11-14 03:03 | HISTORY AND PHYSICAL-Residence ---
History & Physical Providers to CC Resident Creating Document: NORA CASTELLON RES ~ History of Present Illness Primary Medical Doctor: [facility] Reason for Admit\\Complaint: Left lower extremity cellulitis, hypokalemia History of Present Illness Attestation I agree with the residents assessment and plan as below: Plan: ceftriaxone for wound infection SW consult restart AC strict glucose control CCT 57 min using HIPPA compliant A/V technology 44-year-old female with history of COPD, chronic hypoxic respiratory failure on 4 L oxygen, recurrent PE, DVT, obstructive sleep apnea, diabetes presented to the ED with chief complaints of left lower extremity erythema and edema. She states that the swelling started yesterday and eventually started "oozing and had bubbles". She has a history of DVT initially Eliquis later switched to Xarelto as it "was not working well". She uses 4 L home oxygen. Denies drinking alcohol or smoking. Denies significant chest pains, diaphoresis, fevers/chills, nasal congestion, expectoration, palpitations, or weight loss/weight gain. No other concerns or complaints at this time. Discussed advanced care directives and she wishes to be a full code. Allergies: Coded Allergies: Sulfa (Sulfonamide Antibiotics) (Verified Allergy, Severe, SWELLING, 11/13/24) Home Medications Home Medications Active Xarelto (Rivaroxaban) 15 Mg Tab 15 Mg PO Q12H 19 Days continue xarelto 15mg po bid for 19 days and then 20mg po daily Lasix (Furosemide) 20 Mg Tablet 40 Mg PO BID 30 Days Ozempic (Semaglutide) 2 Mg/0.75 Ml (8 Mg/3 Ml) Pen.injctr 2 Mg SUBCUT Q7D 30 Days Risperidone 4 Mg Tab.rapdis 1 Tab PO HS 30 Days Flonase Allergy Relief (Fluticasone Propionate) 50 Mcg/Actuation [place].susp 2 Sprays BOTHNARES DAILY 30 Days Prozac* (Fluoxetine HCl) 20 Mg Capsule 3 Cap PO DAILY 30 Days Vitamin D (Cholecalciferol) 1,000 Unit Tablet 5 Tab PO DAILY 30 Days Abilify* (Aripiprazole) 5 Mg Tablet 1 Tab PO DAILY 30 Days Proventil Nebs* (Albuterol) 2.5 Mg/0.5 Ml Vial.neb 2.5 Mg IH Q6H PRN 30 Days Reported Combivent Respimat Inhal [place] (Albuterol/Ipratropium) 20 Mcg-100 Mcg/Actuation Aer.w.adap 1 Puffs INH Q6H Clonidine HCl 0.1 Mg Tablet 1 Tab PO BID 30 Days Gabapentin 600 Mg Tablet 1 Tab PO BID 30 Days Past Medical History Past Medical History COPD using 4 L of oxygen at home. Diabetes mellitus Obstructive sleep apnea, Pulmonary embolus and DVT currently on Xarelto Past Surgical History Surgical History Comment Cholecystectomy, tonsillectomy Past Social History Smoking: Greater than 1 pack/day Alcohol Use: Sober Drug Use: Methamphetamine Lives with: Other Lives In: Home Occupation: unemployed ROS ROS Reviewed in full. All negative except for pertinent positive HPI. Exam Vitals: Vital Signs Date Time Temp Pulse Resp B/P (MAP) Pulse Ox O2 Delivery O2 Flow Rate FiO2 11/14/24 01:09 93 16 117/73 (88) 94 3.0 11/13/24 23:10 97.7 General: General: Morbidly obese, Awake and Alert, no acute distress. On 4 L oxygen nasal cannula. HEENT: Conjunctiva pink, Sclera clear, Mucus Membranes moist. Neck: Supple without masses and tenderness. Resp: Unlabored. Equal breath sounds bilaterally. Heart: Regular rhythm, normal S1 and S2, no rub, murmur or gallop. Abdomen: Soft and non tender no organomegaly. Normal bowel sounds x4 quadrant normoactive. No guarding or rigidity. Extremities: Left lower extremity edema 2+ and erythema up to knee. Normal range of motion. No cyanosis. RECEIVABLE MANAGER: No gross motor or sensory abnormalities. Skin: Warm and Dry. Diagnostic Data Last Recorded Lab Results: 11/14/24 0014 11/14/24 0014 Diagnostic Data: Laboratory Tests Test 11/14/24 00:14 D-Dimer 0.22 MG/L FEU (0-0.50) D-Dimer Comment Advance Care Planning Advanced Care plannin - 30 Minutes Additional Plan 44-year-old female with history of COPD, chronic hypoxic respiratory failure on 4 L oxygen, recurrent PE, DVT, obstructive sleep apnea, diabetes presented to the ED with chief complaints of left lower extremity erythema and edema. Left lower extremity cellulitis Acute on chronic DVT of the left common femoral, deep femoral and popliteal veins Vitals stable Received Keflex in the ED Started IV ceftriaxone Continue Xarelto 15 mg p.o. b.i.d. Hypokalemia Replacement per protocol Diabetes type 2 on hyper/hypoglycemia protocol History of COPD not in exacerbation, continue breathing treatments p.r.n. Morbid obesity Awaiting med rec Code Status: Full code DVT prophylaxis: Xarelto Analgesia/sedation: None Line/tube: PIV GI prophylaxis: None Nutrition: Carb controlled Prognosis: Guarded Disposition: Continue medical management. Nora Castellon MD. IM Resident PGY-3 Date of Service: Nov 14, 2024 Billing Provider: CHING QUINTERO MD, ELIZABETH, RES Nov 14, 2024 03:03 CHING QUINTERO MD Nov 14, 2024 05:36
--- NOTE | 2024-11-14 03:08 | VASCULAR REPORT ---
Left lower extremity venous duplex Clinical History: Left lower extremity deep venous thrombosis, swelling and oozing Comparison: VASC VL VENOUS on DOS: 10/03/24, VASC VL VENOUS on DOS: 08/15/24 Technique: Duplex Doppler evaluation of the deep venous system of the left lower extremity from the common femor al vein to the popliteal vein including color Doppler and spectral/pulsed waveform analysis was perfo rmed. Findings: Nonocclusive acute on chronic appearing deep venous thrombosis to the left common femoral, deep femor al and popliteal veins. The veins of the calf are poorly visualized. Impression: 1. Nonocclusive acute on chronic DVT of the left common femoral, deep femoral and popliteal veins.
[2024-11-14 03:14] LABS: PRO BRAIN NATRIURETIC PEPTIDE 679 PG/ML (0-125)
[2024-11-14] MEDS ORDERED: ipratropium/albuterol 3ml nebule NEB PRN (03:30)
[2024-11-14 05:18] LABS: LEUKOCYTE ESTERASE ,URINE NEGATIVE (Neg); NITRITES, URINE NEGATIVE (Neg); OCCULT BLOOD,URINE NEGATIVE (Neg)
[2024-11-14 05:21] LABS: UA COLLECTION TYPE NON-SPECIFIED
[2024-11-14 05:48] LABS: URINE AMPHETAMINE SCREEN POSITIVE (Neg); URINE BARBITUATE SCREEN NEGATIVE (Neg); URINE BENZODIAZEPINES SCREEN NEGATIVE (Neg); URINE CANNABINOID SCREEN NEGATIVE (Neg); URINE COCAINE SCREEN NEGATIVE (Neg); URINE METHADONE SCREEN NEGATIVE (Neg); URINE OPIATE SCREEN NEGATIVE (Neg); URINE PHENCYCLIDINE SCREEN NEGATIVE (Neg)
[2024-11-14] MEDS: rivaroxaban 15mg tablet PO SCH (07:17)
[2024-11-14] MEDS: CefTRIAXone/D5W-Rocephin 1gm 50 ML IV SCH (07:17)
[2024-11-14] MEDS: INSULIN LISPRO 100 UNIT/ML INSULN.PEN MULTI-DOSE SQ SCH ×3 (07:21→17:00)
[2024-11-14] MEDS: K and/or MAG REPLACEMENT MC SCH (08:00)
[2024-11-14] MEDS: potassium Cl 20 mEq SR tablet PO PRN (09:52)
[2024-11-14] MEDS: potassium Cl 20 mEq SR tablet PO STA (11:20)
[2024-11-14] MEDS: magnesium Cl slow-release 64mg tablet PO SCH (11:46)
[2024-11-14] MEDS: magnesium Cl slow-release 64mg tablet PO ONE (11:54)
[2024-11-14] MEDS: ipratropium/albuterol 3ml nebule NEB SCH (15:10)
[2024-11-14] MEDS ORDERED: rivaroxaban 15mg tablet PO SCH (20:00)
--- NOTE | 2024-11-14 20:25 | PROGRESS NOTE ---
Daily Progress Note Providers to CC ~ Antibiotic Timeout Antibiotic Ordered?: Yes Subjective Patient was seen in surgical unit her pain and redness over left leg getting better. Patient does use 4 L of oxygen at home she was saturating well. Her potassium levels improved Objective Vital Signs Date Time Temp Pulse Resp B/P (MAP) Pulse Ox O2 Delivery O2 Flow Rate FiO2 11/14/24 20:20 84 18 Nasal Cannula 4.0 11/14/24 20:10 95 36 11/14/24 10:46 98.9 106/66 (79) Result Diagram: 11/14/24 0014 11/14/24 1312 General-patient not in any acute distress, alert awake oriented, chronically ill-appearing HEENT-atraumatic normocephalic, neck supple without elevated JVD, no thyromegaly or carotid bruit. No lymphadenopathy bilaterally. Eyes-no icterus or pallor seen in eyes Chest-clear to auscultation bilaterally, breathing nonlabored no tachypnea, no wheezing, no crepitation, no crackles. Heart-S1-S2 normal, regular heart rate no murmur Abdomen bowel sounds positive on auscultation, soft nondistended nontender no guarding, no rigidity Skin- signs of healing cellulitis present over left lower extremity Neurology-grossly intact, nonfocal alert awake oriented Extremity- no pedal edema able to move all 4 extremities Psychiatry - patient is not confused or agitated cooperated during physical examination Coagulation Studies Laboratory Tests Test 11/14/24 00:14 D-Dimer 0.22 MG/L FEU (0-0.50) D-Dimer Comment Problem\Assessment\Plan 44-year-old female with history of COPD, chronic hypoxic respiratory failure on 4 L oxygen, recurrent PE, DVT, obstructive sleep apnea, diabetes presented to the ED with chief complaints of left lower extremity erythema and edema. Left lower extremity cellulitis Acute on chronic DVT of the left common femoral, deep femoral and popliteal veins Vitals stable Received Keflex in the ED Continue on IV ceftriaxone Continue Xarelto 15 mg p.o. b.i.d. Hypokalemia - improved Replacement per protocol Diabetes type 2 on hyper/hypoglycemia protocol History of COPD not in exacerbation, continue breathing treatments p.r.n. Morbid obesity Home medication reconciliation done for patient's home medication Code Status: Full code DVT prophylaxis: Xarelto Analgesia/sedation: None Line/tube: PIV GI prophylaxis: None Nutrition: Carb controlled Prognosis: Guarded Disposition: Continue medical management. Patient's current condition is guarded we will continue to follow patient in a.m. Date of Service: Nov 14, 2024 Billing Provider: DEMETRIUS MEDINA MD Common Visit Codes: [id number] INP/OBS CARE(HIGH) DEMETRIUS MEDINA MD Nov 14, 2024 20:25
[2024-11-15] VITALS (10 sets, daily range): BP systolic 107–127; BP diastolic 62–76; PULSE 90–103; RESP 17–20; TEMP 97.3–97.8; O2SAT 92–95
[2024-11-15 05:44] LABS: INR 1.3 INR
[2024-11-15 06:00] LABS: CREATININE 0.76 MG/DL (0.40-0.90); PHOSPHORUS 4.6 MG/DL (2.3-4.5); TOTAL CARBON DIOXIDE 34.4 MMOL/L (24-32); eCRCL 75 ML/MIN; eGFR 83 ML/MIN
[2024-11-15 06:16] LABS: MEAN PLATELET VOLUME 8.5 FL (7.4-10.4); RED CELL DISTRIBUTION WIDTH 16.4 % (11.5-14.5)
[2024-11-15] MEDS: fluticasone nasal spray 16GM bottle NS SCH (07:55)
[2024-11-15] MEDS: cholecalciferol (vitamin D3) 1,000 unit (25mcg) tablet PO SCH (07:58)
--- NOTE | 2024-11-15 16:11 | PROGRESS NOTE ---
Daily Progress Note Providers to CC ~ Antibiotic Timeout Antibiotic Ordered?: Yes Subjective Cellulitis over left leg getting better. Patient is encouraged to ambulate. She is saturating well on 4 L Objective Vital Signs Date Time Temp Pulse Resp B/P (MAP) Pulse Ox O2 Delivery O2 Flow Rate FiO2 11/15/24 14:23 93 Nasal Cannula* 4 36 11/15/24 10:00 97.8 94 17 113/76 (88) Result Diagram: 11/15/24 04211/15/24 0420 General-patient not in any acute distress, alert awake oriented, chronically ill-appearing HEENT-atraumatic normocephalic, neck supple without elevated JVD, no thyromegaly or carotid bruit. No lymphadenopathy bilaterally. Eyes-no icterus or pallor seen in eyes Chest-clear to auscultation bilaterally, breathing nonlabored no tachypnea, no wheezing, no crepitation, no crackles. Heart-S1-S2 normal, regular heart rate no murmur Abdomen bowel sounds positive on auscultation, soft nondistended nontender no guarding, no rigidity Skin- signs of healing cellulitis present over left lower extremity Neurology-grossly intact, nonfocal alert awake oriented Extremity- no pedal edema able to move all 4 extremities Psychiatry - patient is not confused or agitated cooperated during physical examination Coagulation Studies Laboratory Tests Test 11/14/24 00:14 11/15/24 04:20 D-Dimer 0.22 MG/L FEU (0-0.50) D-Dimer Comment Prothrombin Time 13.0 SECONDS (9.0-12.0) H INR International Normalized Ratio 1.3 INR Coagulation Comments Problem\Assessment\Plan 44-year-old female with history of COPD, chronic hypoxic respiratory failure on 4 L oxygen, recurrent PE, DVT, obstructive sleep apnea, diabetes presented to the ED with chief complaints of left lower extremity erythema and edema. Left lower extremity cellulitis Acute on chronic DVT of the left common femoral, deep femoral and popliteal veins Vitals stable Received Keflex in the ED Continue on IV ceftriaxone Continue Xarelto 15 mg p.o. b.i.d. Hypokalemia - improved Replacement per protocol Diabetes type 2 on hyper/hypoglycemia protocol History of COPD not in exacerbation, continue breathing treatments p.r.n. Morbid obesity Home medication reconciliation done for patient's home medication Code Status: Full code DVT prophylaxis: Xarelto Analgesia/sedation: None Line/tube: PIV GI prophylaxis: None Nutrition: Carb controlled Prognosis: Guarded Disposition: Continue medical management. Patient's current condition is guarded we will continue to follow patient in a.m. Date of Service: Nov 15, 2024 Billing Provider: DEMETRIUS MEDINA MD Common Visit Codes: [id number] INP/OBS CARE(HIGH) DEMETRIUS MEDINA MD Nov 15, 2024 16:11
[2024-11-15] MEDS: albuterol 2.5 MG/3 ML nebule NEB PRN (17:52)
[2024-11-15] MEDS ORDERED: ATOR20TA PO (20:07)
[2024-11-15] MEDS ORDERED: CHOL500049 PO (20:09)
[2024-11-15] MEDS ORDERED: CLOT15CR73 TOP (20:10)
[2024-11-15] MEDS ORDERED: LAMO25TB3 PO (20:12)
[2024-11-15] MEDS ORDERED: METF-900 PO (20:14)
[2024-11-15] MEDS ORDERED: BUDE180A5 INH (20:16)
[2024-11-15] MEDS ORDERED: TORS20TA3 PO (20:20)
[2024-11-15] MEDS ORDERED: FLUT1BLS4 INH (20:21)
[2024-11-15] MEDS ORDERED: ACET-1025 PO (20:24)
[2024-11-16 01:57] VITALS: O2SAT 94
[2024-11-16 02:17] VITALS: PULSE 98; RESP 18; O2SAT 93
[2024-11-16 02:24] VITALS: PULSE 97; RESP 18
[2024-11-16 05:56] LABS: MEAN PLATELET VOLUME 8.6 FL (7.4-10.4); RED CELL DISTRIBUTION WIDTH 16.5 % (11.5-14.5)
[2024-11-16 06:06] LABS: CREATININE 0.57 MG/DL (0.40-0.90); PHOSPHORUS 5.2 MG/DL (2.3-4.5); TOTAL CARBON DIOXIDE 33.7 MMOL/L (24-32); eCRCL 100 ML/MIN; eGFR > 90 ML/MIN
[2024-11-16 07:42] VITALS: PULSE 97; RESP 19; O2SAT 95
[2024-11-16 07:49] VITALS: PULSE 96; RESP 19
[2024-11-16 10:00] VITALS: BP 122/78; PULSE 92; RESP 20; TEMP 97.5; O2SAT 94
[2024-11-16] MEDS ORDERED: POTA-207 PO (12:13)
[2024-11-16] MEDS ORDERED: FURO-150 PO (12:13)
[2024-11-16] MEDS ORDERED: DOXY-243 PO (12:13)
[2024-11-16] MEDS ORDERED: RIVA20TA PO (12:13)
--- NOTE | 2024-11-16 17:25 | DISCHARGE SUMMARY ---
Discharge Summary Providers to CC ~ Discharge Summary Admission Diagnosis: CELLULITIS Hospital Course DATE OF ADMISSION: November 14 2024 DATE OF DISCHARGE: November 16 2024 CBC testing done on November 16, 2024 WBC 10.1 hemoglobin 12.4 hematocrit 36.7 platelet count 332. Serum chemistry done on November 16, 2024 sodium 139 potassium 4.1 creatinine 0.57 GFR 90. Hemoglobin A1c 8.9. Toxicology screen positive for meth. Vascular ultrasound showed Nonocclusive acute on chronic DVT of the left common femoral, deep femoral and popliteal veins. Discharge Diagnosis\Comment: Left lower extremity cellulitis Acute on chronic DVT of the left common femoral, deep femoral and popliteal veins Hypokalemia - improved Diabetes type 2 History of COPD not in exacerbation, Morbid obesity Operations\Procedures: None Consultants: None Complications: None Condition on DC: Stable New Medications: Doxycycline Hyclate (Doxycycline Hyclate) 100 Mg Tablet.dr 100 MG PO BID for 7 Days, #14 TAB Potassium Chloride* (K-Dur*) 20 Meq Tab.prt.sr 1 TAB PO DAILY for 30 Days, #30 TAB Rivaroxaban (Xarelto) 20 Mg Tablet 20 MG PO QDD for 30 Days, #30 TAB Changed Medications: Furosemide (Lasix) 20 Mg Tablet 20 MG PO DAILY for 30 Days, #30 TAB (Changed from: 40 MG; BID) Continued Medications: Acetaminophen (Tylenol Extra Strength) 500 Mg Tablet 2 TAB PO Q6H PRN PRN for pain or fever for 3 Days, #30 TAB Albuterol Sulfate Nebs* (Proventil Nebs*) 2.5 Mg/0.5 Ml Vial.neb 2.5 MG IH Q6H PRN for SOB or wheezing for 30 Days, EACH Aripiprazole* (Abilify*) 5 Mg Tablet 1 TAB PO DAILY for 30 Days, #30 TAB 0 Refills Atorvastatin Calcium* (Lipitor*) 20 Mg Tablet 1 TABLET PO HS, TABLET Budesonide (Pulmicort Flexhaler) 180 Mcg Aer.pow.ba 2 PUFFS INH Q12H for 30 Days, #1 EA 0 Refills Cholecalciferol (Vitamin D3) (Vitamin D3) 1,250 Mcg (64354 Unit) Capsule 1 CAP PO Q7D for 28 Days, #4 CAP 0 Refills Clonidine HCl (Clonidine HCl) 0.1 Mg Tablet 1 TAB PO BID for 30 Days, #30 TAB 0 Refills Clotrimazole/Betamet Diprop Cream* (Lotrisone Cream*) 15 Gm Tube 1 APPLIC TOP Q12H for 7 Days, #30 GM apply to affected area(s) Fluoxetine Hcl* (Prozac*) 20 Mg Capsule 3 CAP PO DAILY for 30 Days, #30 CAP Fluticasone Propionate (Flonase Allergy Relief) 50 Mcg/Actuation Clemons.susp 2 SPRAYS BOTHNARES DAILY for 30 Days, ML 0 Refills Fluticasone/Umeclidin/Vilanter (Trelegy Ellipta 100-62.5-25) 100-62.5 Blst.w.dev 1 PUFFS INH DAILY for 30 Days, #1 EA 0 Refills Gabapentin (Gabapentin) 600 Mg Tablet 1 TAB PO BID for 30 Days, #90 TAB 0 Refills Ipratropium/Albuterol Sulfate (Combivent Respimat Inhal Clemons) 20 Mcg-100 Mcg/Actuation Aer.w.adap 1 PUFFS INH Q6H, #4 GM Lamotrigine (Lamotrigine) 25 Mg Tb.chw.dsp 1 TAB PO DAILY for 30 Days, #30 TAB 0 Refills Metformin Hcl* (Metformin ER*) 500 Mg Tab.sr.24h 1 TAB PO DAILY, TAB Risperidone (Risperidone) 4 Mg Tab.rapdis 1 TAB PO HS for 30 Days, #30 TAB 0 Refills Semaglutide (Ozempic) 2 Mg/0.75 Ml (8 Mg/3 Ml) Pen.injctr 2 MG SUBCUT Q7D for 30 Days, #3 ML 0 Refills Discontinued Medications: Cholecalciferol (Vitamin D) 1,000 Unit Tablet 5 TAB PO DAILY for 30 Days, #30 TAB 0 Refills Rivaroxaban (Xarelto) 15 Mg Tab 15 MG PO Q12H for 19 Days, #38 TAB 0 Refills continue xarelto 15mg po bid for 19 days and then 20mg po daily Torsemide (Torsemide) 20 Mg Tablet 1 TAB PO BID for 30 Days, #30 TAB 0 Refills Discharge Summary: 44-year-old female with history of COPD, chronic hypoxic respiratory failure on 4 L oxygen, recurrent PE, DVT, obstructive sleep apnea, diabetes presented to the ED with chief complaints of left lower extremity erythema and edema. During hospitalization patient was treated for Left lower extremity cellulitis Acute on chronic DVT of the left common femoral, deep femoral and popliteal veins Vitals stable Received Keflex in the ED Continue on IV ceftriaxone Continue Xarelto 15 mg p.o. b.i.d. Hypokalemia - improved Replacement per protocol Diabetes type 2 on hyper/hypoglycemia protocol History of COPD not in exacerbation, continue breathing treatments p.r.n. Morbid obesity Urine drug screen positive for meth use. Home medication reconciliation done for patient's home medication Patient's clinical condition improved and she is feeling much better. She has been afebrile and getting discharged home in stable condition. Patient is seen and examined on the day of discharge discharge instructions provided to the patient. All questions and concerns answered to the best of my professional medical knowledge.Please follow-up with PCP in 1-2 weeks. Continue wound care treatment in outpatient setting IN CALL IN WOUND CARE CLINIC FOR APPOINTMENT IN A.M.. Activity as tolerated. Read the side effects of all your medication and discussed with the primary care physician or doctor whho is prescribing those medications to you . General-patient not in any acute distress, alert awake oriented, chronically ill-appearing HEENT-atraumatic normocephalic, neck supple without elevated JVD, no thyromegaly or carotid bruit. No lymphadenopathy bilaterally. Eyes-no icterus or pallor seen in eyes Chest-clear to auscultation bilaterally, breathing nonlabored no tachypnea, no wheezing, no crepitation, no crackles. Heart-S1-S2 normal, regular heart rate no murmur Abdomen bowel sounds positive on auscultation, soft nondistended nontender no guarding, no rigidity Skin- signs of healing cellulitis present over left lower extremity Neurology-grossly intact, nonfocal alert awake oriented Extremity- no pedal edema able to move all 4 extremitiessigns of healing cellulitis present over left lower extremity Psychiatry - patient is not confused or agitated cooperated during physical examination *Problems/Diagnosis: (1) Hypokalemia Status: Acute (2) Cellulitis Status: Acute Total Time Spent on D/C: > 30 Minutes Date of Service: Nov 16, 2024 Billing Provider: DEMETRIUS MEDINA MD Common Visit Codes: [id number] DISCH DAY >30min DEMETRIUS MEDINA MD Nov 16, 2024 17:20
== END 2024-11-16 14:18 | disposition home or self-care (01) | DRG 383 ==
LOC: ER 22:59 → ED HOLD 11-14 01:14 → SUR 3N 11-14 03:40
PROVIDERS: ADMIT Internal Medicine; ATTEND Internal Medicine
DX: L03.116 Cellulitis of left lower limb (principal); I82.412 Acute embolism and thrombosis of left femoral vein; J96.11 Chronic respiratory failure with hypoxia; I82.512 Chronic embolism and thrombosis of left femoral vein; I82.432 Acute embolism and thrombosis of left popliteal vein; E87.6 Hypokalemia; F15.90 Other stimulant use, unspecified, uncomplicated; I82.532 Chronic embolism and thrombosis of left popliteal vein; J44.9 Chronic obstructive pulmonary disease, unspecified; G47.33 Obstructive sleep apnea (adult) (pediatric); E11.9 Type 2 diabetes mellitus without complications; E66.01 Morbid (severe) obesity due to excess calories; Z68.42 Body mass index [BMI] 45.0-49.9, adult; Z79.01 Long term (current) use of anticoagulants; Z79.84 Long term (current) use of oral hypoglycemic drugs; Z79.85 Long-term (current) use of injectable non-insulin antidiabetic drugs; Z79.899 Other long term (current) drug therapy
CPT/HCPCS: 36415; 80048; 80305; 81003; 82948; 83036; 83735; 83880; 84100; 84132; 85007; 85025; 85379; 85610; 87081; 93005; 93971; 94640; 94760; 96365; 97161; 97530; 99285; G0378; J0696; J1815; J3480; J7040